=== PATIENT | female | born 2000 | race Caucasian/White ===

== ENCOUNTER 2019-08-22 12:28 | Outpatient (CLI) | payer BC, SELFPAY ==
--- NOTE | ~2019-08-22 | XR_ITS ---
XR hand RT min 3V DATE: 08/22/2019 12:59 INDICATION: Right fourth metacarpal pain after karate chop to a board TECHNIQUE: 3 views COMPARISON: 09/04/2018 right hand FINDINGS: No fracture or dislocation, periosteal reaction or bone destruction. Joint spaces are prese rved. No erosive change or chondrocalcinosis. IMPRESSION: Negative Reviewed, dictated and finalized at location A. IMPRESSION: Negative
== END 2019-08-22 12:29 | disposition home or self-care (01) ==
PROVIDERS: PCP Pediatrics; Visit Provider Pediatrics
DX: S69.91XA Unspecified injury of right wrist, hand and finger(s), initial encounter (principal); X58.XXXA Exposure to other specified factors, initial encounter
CPT/HCPCS: 73130

== ENCOUNTER 2021-12-04 20:33 | Emergency (ER) | payer BC, SELFPAY ==
[2021-12-04] VITALS (8 sets, daily range): BP systolic 103–136; BP diastolic 71–79; PULSE 115; RESP 20; TEMP 36.8; O2SAT 97–100
--- NOTE | ~2021-12-04 | US_ITS ---
EXAMINATION: US pelvic complete w TV DATE: 12/05/2021 03:43 INDICATION: Evaluate for ovarian torsion. Pelvic pain. Comparison:No prior studies for comparison. TECHNIQUE: Multiple transabdominal and endovaginal sonographic images of the pelvis performed. FINDINGS: The uterus measures 8.2 x 3.6 x 5 cm. The endometrial complex measures 2 mm. The right ovary measures 2.9 x 1.6 x 2.5 cm and the left ovary measures 5.9 x 4.6 x 4 cm. There are small follicles in each ovary. There is a complex hemorrhagic cyst of the left ovary measuring 5 x 4. 2 x 4.3 cm. Normal doppler signal in both ovaries. There is free fluid in the pelvis. There are no abnormal masses seen on either side. IMPRESSION: 1. Complex hemorrhagic cyst of the left ovary measuring up to 5 cm. 2: No evidence for ovarian torsion. Reviewed, dictated and finalized at location A.
--- NOTE | ~2021-12-04 | CT_ITS ---
EXAMINATION: CT abdomen pelvis w con DATE: 12/05/2021 01:52 INDICATION: Left lower quadrant pain. Intermittent nausea and vomiting. TECHNIQUE: Computed tomography (CT) of the abdomen and pelvis was performed without intravenous contr ast. The dose-length product was 328.12 mGy-cm. Automated exposure control and iterative reconstructi on technique were employed. COMPARISON: CT dated 08/22/2017 FINDINGS: Lung bases are unremarkable. Heart size normal. No significant pleural or pericardial effus ion. No significant vascular abnormality. No lymphadenopathy. Nonobstructive bowel gas pattern. Gallb ladder is present. There is a 5.2 x 4.3 cm left ovarian cyst. The liver, spleen, pancreas, adrenal glands and kidneys are unremarkable. Trace free fluid in the pel vis. There is grade 1 spondylolisthesis at L5-S1 secondary to spondylolysis. IMPRESSION: 1. Left ovarian cyst measuring 5.2 x 4.3 cm. Reviewed, dictated and finalized at location A.
[2021-12-04 20:59] LABS: Basophils Percent Auto 0.5 % (0.2-1.2); Eosinophils Absolute Auto 0.1 K/mm3 (0-0.3); Eosinophils Percent Auto 0.8 % (0-4.4); Hematocrit 39.8 % (37.0-47.0); Hemoglobin 13.7 g/dL (12.0-15.0); Immature Granulocyte Absolute 0.03 K/mm3 (0.00-0.031); Immature Granulocyte Percent A 0.4 % (0-0.5); Lymphocytes Absolute Auto 2.14 K/mm3 (0.9-3.2); Lymphocytes Percent Auto 27.3 % (18.3-44.2); Mean Corpuscular HGB Conc 34.4 g/dl (32-36); Mean Corpuscular Hemoglobin 29.9 pg (26-34); Mean Corpuscular Volume 86.9 fl (80-100); Mean Platelet Volume 9.1 fl (7.4-10.4); Monocytes Absolute Auto 0.6 K/mm3 (0.1-0.6); Neutrophils Absolute Auto 4.9 K/mm3 (1.3-6.7); Platelet Count Result 335 k/mm3 (150-375); Red Blood Count 4.58 M/mm3 (4.2-5.4); Red Cell Distribution Width 12.5 % (11.5-14.5); White Blood Count 7.8 K/mm3 (4.5-10.0)
[2021-12-04 21:09] LABS: Alanine Aminotransferase 25 U/L (6-35); Alkaline Phosphatase 61 U/L (38-126); Anion Gap 10 mmol/L (8-16); Aspartate Amino Transferase 25 U/L (14-36); Bilirubin,Total 0.6 mg/dL (0.2-1.3); Blood Urea Nitrogen 9 mg/dL (7-17); Calcium 9.2 mg/dL (8.4-10.2); Carbon Dioxide 26 mmol/L (22-30); Chloride 99 mmol/L (98-107); Estimated CRCL calculation 83 ml/min; Estimated Glomerular Filt Rate > 60; Glucose 98 mg/dL (65-110); Lipase 30 U/L (23-300); Potassium 4.1 mmol/L (3.4-5.0); Sodium 135 mmol/L (137-145)
[2021-12-04 21:31] LABS: Bacteria Urine Trace /hpf; RBC Urine 0-2 /hpf (0-2); Squamous Epithelial Cell Urine Few /hpf (Few); WBC Urine 0-3 /hpf
[2021-12-04 22:00] LABS: Add Urine Microscopic? YES; Color Urine Yellow (Yellow)
[2021-12-04 22:01] LABS: Appearance Urine Clear (Clear); Glucose Urine UA Trace mg/dL (Negative); Ketones Urine Negative (Negative); Protein Urine Negative (Negative); Specific Grav Ur 1.015 (1.001-1.035); pH Urine 7.5 (5.0-9.0)
[2021-12-04 22:02] LABS: Bilirubin Urine Negative (Negative); Blood Urine Negative (Negative); Leukocyte Esterase Ur Negative LEU/UL (Negative); Nitrate Urine Negative (Negative); Urobilinogen Urine 0.2 mg/dL (<2.0)
--- NOTE | 2021-12-04 23:38 | ED.ABDPAIN ---
HPI - Abdominal Pain General Chief Complaint: Abdominal Pain <Karen Jasmine PA-C - Last Filed: 12/05/21 17:14> Stated Complaint: ABDOMINAL PAIN <Karen Jasmine PA-C - Last Filed: 12/05/21 17:14> Time Seen by Provider: 12/04/21 23:23 <Karen Jasmine PA-C - Last Filed: 12/05/21 17:14> Source: patient <CADY Couch Last Filed: 12/05/21 17:14> Mode of arrival: ambulatory <CADY Couch Last Filed: 12/05/21 17:14> Limitations: no limitations <CADY Couch Last Filed: 12/05/21 17:14> History of Present Illness HPI narrative: This is a 21-year-old female that presents to the emergency department for left lower quadrant abdominal pain. Ongoing over the last week. Reports an episode of nausea and vomiting. Also reports some diarrhea. Does report she has had some discomfort with urination. Denies fevers or hematuria. <CADY Couch Last Filed: 12/05/21 17:14> Related Data Home Medications: Home Medications Medication Instructions Recorded Confirmed lisdexamfetamine 50 mg capsule mg 12/04/21 (Vyvanse) spironolactone 100 mg tablet 100 mg PO DAILY 12/04/21 <CADY Couch Last Filed: 12/05/21 17:14> Allergies/Adverse Reactions: Allergies Allergy/AdvReac Type Severity Reaction Status Date / Time No Known Allergies Allergy Verified 12/04/21 20:49 <Karen Jasmine PA-C - Last Filed: 12/05/21 17:14> Review of Systems Review of Systems: CONSTITUTIONAL: Denies fever GASTROINTESTINAL: Reports abdominal pain, nausea, vomiting, and diarrhea. GENITOURINARY: Reports dysuria. Denies hematuria. <CADY Couch Last Filed: 12/05/21 17:14> All systems reviewed & are unremarkable except as noted in HPI and below <CADY Couch Last Filed: 12/05/21 17:14> [facility] Past Medical History Medical History: Medical History (Updated 12/05/21 @ 03:25 by Karen Jasmine PA-C) History of ADHD <Karen Jasmine PA-C - Last Filed: 12/05/21 17:14> Social History Social History: Social History (Updated 12/04/21 @ 23:40 by Karen Jasmine PA-C) Smoking status: Never smoker <Karen Jasmine PA-C - Last Filed: 12/05/21 17:14> Exam Narrative: GENERAL: Well-appearing, well-nourished, and in no acute distress. HEAD: Normocephalic, atraumatic. EYES: EOMI. CHEST: Clear to auscultation. No respiratory distress. No wheezes rales or rhonchi HEART: Regular rate and rhythm. No murmur heard. Normal peripheral pulses. ABDOMEN: Soft, nondistended, normal active bowel sounds. Mild tenderness to palpation in the left lower quadrant, without guarding. No CVA tenderness EXTREMITIES: Normal range of motion. No edema. SKIN: Warm, dry, no rash. NEURO: No focal deficits. Alert and oriented x3. PSYCH: Normal mood and affect <Karen Jasmine PA-C - Last Filed: 12/05/21 17:14> Course CURTAIN STRETCHER/PA Physician Supervision I have personally seen and evaluated the patient and made [id number] time with the patient and agree with the advanced practice providers assessment evaluation plan <Mychal Peter MD - Last Filed: 12/05/21 04:54> Vital Signs Vital signs: Vital Signs Temperature 98.3 F 12/04/21 20:46 Pulse Rate 115 H 12/04/21 20:46 Respiratory Rate 20 12/04/21 20:46 Blood Pressure 136/79 12/04/21 20:46 Pulse Oximetry 97 12/04/21 20:46 Oxygen Delivery Room Air 12/04/21 20:46 Temperature 98.3 F 12/04/21 20:46 Pulse Rate 115 H 12/04/21 20:46 Respiratory Rate 20 12/04/21 20:46 Blood Pressure 114/74 12/05/21 01:17 Pulse Oximetry 100 12/05/21 01:17 Oxygen Delivery Room Air 12/04/21 20:46 <Karen Jasmine PA-C - Last Filed: 12/05/21 17:14> Vital Signs Temperature 98.3 F 12/04/21 20:46 Pulse Rate 115 H 12/04/21 20:46 Respiratory Rate 20 12/04/21 20:46 Blood Pressure 136/79 12/04/21 20:46 Pulse Oximetry 97 12/04/21 20:46
[2021-12-05] VITALS (12 sets, daily range): BP systolic 95–114; BP diastolic 48–77; O2SAT 99–100
[2021-12-05 00:40] LABS: Influenza A QL RT-PCR Negative (Negative); Influenza B QL RT-PCR Negative (Negative); SARS-CoV-2 RNA PCR Negative
[2021-12-05] MEDS: SODIUM CHLORIDE 0.9% IV 1,000 ML 999 ML IV CONT (00:58)
== END 2021-12-05 05:59 | disposition home or self-care (01) ==
PROVIDERS: Physician Assistant; Emergency Provider Emergency Medicine; PCP Physician Assistant
DX: N83.202 Unspecified ovarian cyst, left side (principal); Z20.822 Contact with and (suspected) exposure to COVID-19
CPT/HCPCS: 36415; 74177; 76830; 76856; 80053; 81001; 81025; 83690; 85025; 87502; 96361; 96365; 99284; J0131; J7030; Q9967; U0003; U0005

== ENCOUNTER 2022-01-21 10:30 | Outpatient (CLI) | payer BC, SELFPAY ==
--- NOTE | ~2022-01-21 | US_ITS ---
Pelvic ultrasound. Clinical History: Left ovarian cyst COMPARISON: 12/05/2021 Technique: Realtime transabdominal and transvaginal scanning of the pelvis was performed. Color flow Doppler and Doppler spectral analysis were performed. Findings: The uterus is anteverted. The endometrial stripe has a thickness of 3 mm. No focal mass is identified. The right ovary measures 2.0 x 1.9 x 1.5 cm. No significant right ovarian or adnexal mass is seen. The left ovary measures 2.5 x 2.8 x 2.4 cm. No significant left ovarian or adnexal mass is seen. Vascular flow present in both ovaries on Doppler spectral analysis. There is no evidence of free fluid in the cul de sac. Impression: No significant abnormality seen. Previously noted left ovarian hemorrhagic cyst is essentially comple tely resolved. Reviewed, dictated and finalized at location [] EXPELLER Impression: No significant abnormality seen. Previously noted left ovarian hemorrhagic cyst is essentially completely resolved.
== END 2022-01-21 10:31 | disposition home or self-care (01) ==
PROVIDERS: PCP Physician Assistant; Visit Provider Obstetrics & Gynecology
DX: N83.202 Unspecified ovarian cyst, left side (principal)
CPT/HCPCS: 76830; 76856

== ENCOUNTER 2022-05-25 11:05 | Emergency (ER) | payer BC, SELFPAY ==
--- NOTE | ~2022-05-25 | US_ITS ---
Pelvic ultrasound. Clinical History: Ovarian cyst Technique: Realtime transabdominal and transvaginal scanning of the pelvis was performed. Color flow Doppler and Doppler spectral analysis were performed. Findings: The uterus is anteverted. The endometrial stripe has a thickness of 2 mm. No focal mass is identified. The right ovary measures 4.3 x 3.9 x 4.7 cm. Hemorrhagic right ovarian cyst measures 4.2 cm in maximu m diameter. The left ovary measures 2.0 x 2.9 x 1.7 cm. No significant left ovarian or adnexal mass is seen. Vascular flow present in both ovaries on Doppler spectral analysis. There is no evidence of free fluid in the cul de sac. Impression: 4.2 cm hemorrhagic right ovarian cyst. Reviewed, dictated and finalized at [facility]. Impression: 4.2 cm hemorrhagic right ovarian cyst.
[2022-05-25 11:21] VITALS: BP 126/68; PULSE 98; RESP 18; TEMP 37.2; O2SAT 100
[2022-05-25 12:24] LABS: Basophils Percent Auto 0.9 % (0.2-1.2); Eosinophils Absolute Auto 0.1 K/mm3 (0-0.3); Hematocrit 37.7 % (37.0-47.0); Hemoglobin 12.4 g/dL (12.0-15.0); Immature Granulocyte Absolute 0.01 K/mm3 (0.00-0.031); Immature Granulocyte Percent A 0.2 % (0-0.5); Lymphocytes Absolute Auto 1.83 K/mm3 (0.9-3.2); Lymphocytes Percent Auto 41.7 % (18.3-44.2); Mean Corpuscular HGB Conc 32.9 g/dl (32-36); Mean Corpuscular Hemoglobin 28.8 pg (26-34); Mean Corpuscular Volume 87.7 fl (80-100); Mean Platelet Volume 9.4 fl (7.4-10.4); Monocytes Absolute Auto 0.4 K/mm3 (0.1-0.6); Monocytes Percent Auto 9.8 % (2.6-8.5); Neutrophils Percent Auto 44.4 % (45.5-73.1); Platelet Count Result 312 k/mm3 (150-375); Red Cell Distribution Width 13.2 % (11.5-14.5); White Blood Count 4.4 K/mm3 (4.5-10.0)
[2022-05-25 12:38] LABS: Alanine Aminotransferase 18 U/L (6-35); Albumin Level 4.1 g/dL (3.5-5.1); Alkaline Phosphatase 65 U/L (38-126); Anion Gap 5 mmol/L (8-16); Aspartate Amino Transferase 19 U/L (14-36); Bilirubin,Total 0.7 mg/dL (0.2-1.3); Blood Urea Nitrogen 7 mg/dL (7-17); Calcium 8.9 mg/dL (8.4-10.2); Carbon Dioxide 28 mmol/L (22-30); Chloride 105 mmol/L (98-107); Estimated CRCL calculation 126 ml/min; Estimated Glomerular Filt Rate > 60; Glucose 92 mg/dL (65-110); Lipase 27 U/L (23-300); Potassium 4.3 mmol/L (3.4-5.0); Sodium 138 mmol/L (137-145)
--- NOTE | 2022-05-25 12:39 | ED.GENADULT ---
HPI - General Adult General Chief complaint: Abdominal Pain Stated complaint: ovarian cyst Time Seen by Provider: 05/25/22 12:06 History of Present Illness HPI narrative: 22 yo female with pmh of ovarian cysts presents with R sided pelvic pressure that sometimes radiates to L side. This feels similar to prior ovarian cysts she has had in the past. lmp was 3 months ago which is normal for her. Related Data Home Medications Medication Instructions Recorded Confirmed lisdexamfetamine 50 mg capsule mg 12/04/21 (Vyvanse) spironolactone 100 mg tablet 100 mg PO DAILY 12/04/21 Allergies Allergy/AdvReac Type Severity Reaction Status Date / Time No Known Allergies Allergy Verified 05/25/22 13:13 Review of Systems Review of Systems: Gen.: Denies fevers or chills Eyes: Denies eye pain or visual change ENT: Denies congestion Respiratory: Denies shortness of breath or cough CV: Denies chest pain or palpitations GI: Denies abdominal pain nausea, emesis or diarrhea denies burning, urgency, frequency or hematuria Musculoskeletal: Denies back pain or muscle pain Neuro: Denies numbness, tingling, weakness or focal weakness Skin: Denies rash Except as documented, all other systems reviewed and negative PMFSH Past Medical History Medical History History of ADHD Social History Social History Smoking status: Never smoker Exam Narrative: GENERAL: Well-appearing, well-nourished, and in no acute distress. HEAD: Normocephalic, atraumatic. EYES: PERRLA and EOMI. ENT: Nares clear, no rhinorrhea or epistaxis. Mucous membranes moist. NECK: Supple. CHEST: Clear to auscultation. No respiratory distress. HEART: Regular rate and rhythm. No murmur heard. Normal peripheral pulses. ABDOMEN: Soft, nontender, nondistended, normal active bowel sounds. EXTREMITIES: Normal range of motion. No edema. SKIN: Warm, dry, no rash. NEURO: No focal deficits. Alert and oriented x3. PSYCH: Normal mood and affect. Course Vital Signs Vital signs: Vital Signs Temperature 99.0 F 05/25/22 11:21 Pulse Rate 98 05/25/22 11:21 Respiratory Rate 18 05/25/22 11:21 Blood Pressure 126/68 05/25/22 11:21 Pulse Oximetry 100 05/25/22 11:21 Oxygen Delivery Room Air 05/25/22 11:21 Temperature 99.0 F 05/25/22 11:21 Pulse Rate 89 05/25/22 14:08 Respiratory Rate 17 05/25/22 14:08 Blood Pressure 120/72 05/25/22 14:08 Pulse Oximetry 98 05/25/22 14:08 Oxygen Delivery Room Air 05/25/22 11:21 Medical Decision Making MDM Narrative Medical decision making narrative: 22 yo w pelvic pressure. hcg negative labs-reassuring pelvic us-4.2 cm hemorrhagic R ovarian cyst nsaids at DC and return precautions given Vital Signs Vital Signs: Vital Signs Temperature 99.0 F 05/25/22 11:21 Pulse Rate 98 05/25/22 11:21 Respiratory Rate 18 05/25/22 11:21 Blood Pressure 126/68 05/25/22 11:21 Pulse Oximetry 100 05/25/22 11:21 Oxygen Delivery Room Air 05/25/22 11:21 Temperature 99.0 F 05/25/22 11:21 Pulse Rate 89 05/25/22 14:08 Respiratory Rate 17 05/25/22 14:08 Blood Pressure 120/72 05/25/22 14:08 Pulse Oximetry 98 05/25/22 14:08 Oxygen Delivery Room Air 05/25/22 11:21 Lab Data 05/25/22 12:18 05/25/22 12:18 Labs: Lab Results 05/25/22 05/25/22 05/25/22 Range/Units 12:18 12:18 12:32 WBC 4.4 L (4.5-10.0) K/mm3 RBC 4.30 (4.2-5.4) M/mm3 Hgb 12.4 (12.0-15.0) g/dL Hct 37.7 (37.0-47.0) % MCV 87.7 (80-100) fl MCH 28.8 (26-34) pg MCHC 32.9 (32-36) g/dl RDW 13.2 (11.5-14.5) % Plt Count 312 (150-375) k/mm3 MPV 9.4 (7.4-10.4) fl Immature Gran % (Auto) 0.2 (0-0.5) % Neut % (Auto) 44.4 L (45.5-73.1) % Lymph % (Auto) 41.7 (18.3-44.2) % [place] % (Auto) 9.8 H (2.6
[2022-05-25 12:45] LABS: Appearance Urine Clear (Clear); Bilirubin Urine Negative (Negative); Blood Urine Negative (Negative); Color Urine Yellow (Yellow); Glucose Urine UA Negative (Negative); Ketones Urine Negative (Negative); Leukocyte Esterase Ur Negative LEU/UL (Negative); Nitrate Urine Negative (Negative); Protein Urine Negative (Negative); Specific Grav Ur 1.019 (1.001-1.035)
[2022-05-25 13:03] LABS: Add Urine Microscopic? NO
[2022-05-25] MEDS: KETOROLAC 15 MG/ML VIAL (*BKC) IV PUSH (13:14)
[2022-05-25 14:08] VITALS: BP 120/72; PULSE 89; RESP 17; O2SAT 98
== END 2022-05-25 14:09 | disposition home or self-care (01) ==
PROVIDERS: Emergency Provider Emergency Medicine; PCP Physician Assistant
DX: N83.201 Unspecified ovarian cyst, right side (principal); F90.9 Attention-deficit hyperactivity disorder, unspecified type
CPT/HCPCS: 36415; 76830; 76856; 80053; 81003; 81025; 83690; 85025; 96374; 99284; J1885

== ENCOUNTER 2023-02-26 15:12 | Emergency (ER) | payer BC, SELFPAY ==
--- NOTE | 2023-02-26 15:28 | ED.GENADULT ---
HPI - General Adult General Chief complaint: Skin/Abscess/Foreign Body Stated complaint: rash Time Seen by Provider: 02/26/23 15:55 Source: patient, RN notes reviewed and old records reviewed Mode of arrival: ambulatory Limitations: no limitations History of Present Illness HPI narrative: 23-year-old female presents to the [facility] with complaints of a rash. Patient states that started just above her left anterior knee. Has spread to her chest, stomach and back. Describes it as being very itchy. No treatment prior to arrival. Denies any new creams ointments lotions detergents. Denies any new clothes Related Data Home Medications Medication Instructions Recorded Confirmed lisdexamfetamine 50 mg capsule mg 12/04/21 (Vyvanse) etonogestrel 68 mg subdermal 1 implant subdermal ONCE 02/26/23 02/26/23 implant (Nexplanon) Allergies Allergy/AdvReac Type Severity Reaction Status Date / Time No Known Allergies Allergy Verified 02/26/23 15:59 Review of Systems Review of Systems: All systems reviewed & are unremarkable except as noted in HPI and below Constitutional: Constitutional: Reports no additional constitutional complaints Eyes: Eyes: Reports no additional eye complaints ENT: Reports system reviewed and no additional complaints, except as documented Cardiovascular: Cardiovascular: Reports no additional cardiovascular complaints, Denies chest pain and Denies dyspnea Respiratory: Respiratory: Reports no additional respiratory complaints, Denies chest congestion, Denies cough and Denies dyspnea Gastrointestinal: Gastrointestinal: Reports no additional gastrointestinal complaints, Denies abdominal pain, Denies nausea and Denies vomiting Musculoskeletal: Musculoskeletal: Reports no additional musculoskeletal complaints Integumentary/Breasts: Skin/Breast: Reports as per HPI and Reports rash Neurologic: Reports system reviewed and no additional complaints, except as documented Psychiatric: Psychiatric: Reports no additional psychiatric complaints Allergic/Immunologic: Allergic/Immunologic: Reports no additional allergic/immunologic complaints [facility] Past Medical History Medical History History of ADHD Social History Social History Smoking status: Never smoker Comments At the time of my signature, I reviewed and agree with the nursing past medical, surgical, social, and family history. There is no relevant family history pertinent to the patient complaint. Exam Const: General: cooperative, healthy appearing, comfortable, no acute distress, well developed, alert and well nourished Nutritional Appearance: well nourished Orientation/consciousness: patient oriented x3 Limitations: no limitations HENMT: Head: normal to inspection Ears: hearing grossly normal bilaterally and external ears normal Face/Nose/Sinus: Normal external nose present, Normal nares present, Normal nasal mucous membranes and turbinates present, normal facial exam and face symmetric Face and sinus: normal facial exam and face symmetric Mouth: Yes Normal oral and palatal mucosa present, Yes lip normal and Yes moist mucous membranes Eyes: General: appearance normal, both eyes and all related structures Alignment and Position: alignment normal Periorbital: periorbital findings normal Pupils: Equal, round and reactive pupils present EOM: EOMs intact bilaterally Neck: Neck: normal visual inspection, full ROM, no lymphadenopathy and no meningeal signs Chest: Chest palpation & inspection: normal inspection of the chest Resp: Effort & Inspection: normal respiratory effort and able to speak in complete sentences Auscultation: clear to auscultation bilaterally, no crackles, no rales, no rhonchi and no wheezes Cardio: Rate: regular rate Rhythm: regular rhythm Back/Spine/Pelvis: Cervical Spine: cervical ROM normal Skin
[2023-02-26 15:39] VITALS: BP 123/73; PULSE 103; RESP 18; TEMP 36.9; O2SAT 100
== END 2023-02-26 16:10 | disposition home or self-care (01) ==
PROVIDERS: Emergency Provider Nurse Practitioner; PCP Physician Assistant
DX: R21 Rash and other nonspecific skin eruption (principal)
CPT/HCPCS: 99213; G0463

== ENCOUNTER 2023-02-26 17:51 | Emergency (ER) | payer BC, SELFPAY ==
[2023-02-26 17:53] VITALS: BP 120/79; PULSE 94; RESP 17; TEMP 36.6; O2SAT 100
--- NOTE | 2023-02-26 23:59 | PC.NURSE ---
Patient comes to desk to state I'm going to head out, I will come back if I need to. Patient informed of the risks of leaving before being seen by a provider and benefits of staying. Patient a/ox 4, verbalized understanding. Patient ambulated out of the ED with a steady gait with belongings in hand.
== END 2023-02-27 00:29 | disposition left against medical advice (07) ==
LOC: ANHED 02-27 00:09
PROVIDERS: PCP Physician Assistant
DX: R21 Rash and other nonspecific skin eruption (principal)
CPT/HCPCS: 99199

== ENCOUNTER 2023-05-30 00:10 | Emergency (ER) | payer BC, SELFPAY ==
--- NOTE | ~2023-05-30 | US_ITS ---
EXAMINATION: US pelvic complete w TV DATE: 05/30/2023 02:05 INDICATION: Left lower quadrant abdominal pain. TECHNIQUE: Multiple transabdominal and transvaginal sonographic images of the pelvis were obtained. COMPARISON: CT abdomen and pelvis 05/30/23 FINDINGS: TRANSABDOMINAL ULTRASOUND: The uterus measures 7.7 x 3.5 x 4.5 cm. There is no free fluid in the pelvis. TRANSVAGINAL ULTRASOUND: The endometrial complex measures 3 mm in thickness. The right ovary measures 2.0 x 3.7 x 2.5 cm. The left ovary measures 2.8 x 3.4 x 1.9 cm. There is normal vascular flow in the ovaries. IMPRESSION: 1. Normal pelvis. Reviewed, dictated and finalized at location E. IMPRESSION: 1. Normal pelvis.
--- NOTE | ~2023-05-30 | CT_ITS ---
EXAMINATION: CT abdomen pelvis wo con DATE: 05/30/2023 01:27 INDICATION: Left lower quadrant abdominal pain. Nausea and vomiting. TECHNIQUE: Computed tomography (CT) of the abdomen and pelvis was performed without intravenous contr ast. Automated exposure control and iterative reconstruction technique were employed. The dose-length product was 231.93 mGy-cm. COMPARISON: CT abdomen and pelvis 12/05/2021 FINDINGS: The visualized portions of the lung bases are clear without pneumonia or pleural effusion. The heart size is normal. No pericardial effusion. The liver, gallbladder, spleen, pancreas, adrenal glands, and kidneys are normal. There is no urolithiasis. The appendix is normal. There are no pathol ogically enlarged lymph nodes. There is no free intraperitoneal fluid. There are chronic bilateral L5 pars defects. IMPRESSION: 1. No etiology for the patient's symptoms. Reviewed, dictated and finalized at location E.
[2023-05-30 00:10] VITALS: BP 119/86; PULSE 96; RESP 18; TEMP 37.1; O2SAT 100
--- NOTE | 2023-05-30 01:01 | PC.NURSE ---
x-ray notified to call in ultrasound
[2023-05-30 01:06] LABS: Basophils Percent Auto 0.5 % (0.2-1.2); Eosinophils Absolute Auto 0.1 K/mm3 (0-0.3); Eosinophils Percent Auto 1.6 % (0-4.4); Hematocrit 40.1 % (37.0-47.0); Hemoglobin 13.3 g/dL (12.0-15.0); Immature Granulocyte Absolute 0.01 K/mm3 (0.00-0.031); Immature Granulocyte Percent A 0.2 % (0-0.5); Lymphocytes Absolute Auto 1.89 K/mm3 (0.9-3.2); Lymphocytes Percent Auto 32.8 % (18.3-44.2); Mean Corpuscular HGB Conc 33.2 g/dl (32-36); Mean Corpuscular Volume 87.4 fl (80-100); Mean Platelet Volume 9.6 fl (7.4-10.4); Monocytes Absolute Auto 0.4 K/mm3 (0.1-0.6); Monocytes Percent Auto 6.8 % (2.6-8.5); Neutrophils Absolute Auto 3.4 K/mm3 (1.3-6.7); Neutrophils Percent Auto 58.1 % (45.5-73.1); Platelet Count Result 271 k/mm3 (150-375); Red Blood Count 4.59 M/mm3 (4.2-5.4); Red Cell Distribution Width 12.8 % (11.5-14.5); White Blood Count 5.8 K/mm3 (4.5-10.0)
[2023-05-30 01:10] LABS: Appearance Urine Clear (Clear); Bacteria Urine Rare /hpf; Bilirubin Urine Negative (Negative); Blood Urine 3+ (Negative); Color Urine Yellow (Yellow); Glucose Urine UA Negative (Negative); Ketones Urine Negative (Negative); Leukocyte Esterase Ur Negative LEU/UL (Negative); Nitrate Urine Negative (Negative); Non Pathogenic Casts 0-2; Protein Urine Negative (Negative); Specific Grav Ur 1.026 (1.001-1.035); Squamous Epithelial Cell Urine Occasional /hpf (Few); Urobilinogen Urine 0.2 mg/dL (<2.0); WBC Urine 0-5 /hpf (0-3); pH Urine 5.5 (5.0-9.0)
[2023-05-30 01:16] LABS: Alanine Aminotransferase 35 U/L (6-35); Albumin Level 4.7 g/dL (3.5-5.1); Alkaline Phosphatase 80 U/L (38-126); Anion Gap 7 mmol/L (4-12); Aspartate Amino Transferase 36 U/L (14-36); Bilirubin,Total 0.7 mg/dL (0.2-1.3); Blood Urea Nitrogen 8 mg/dL (7-17); Calcium 9.6 mg/dL (8.4-10.2); Carbon Dioxide 24 mmol/L (22-30); Chloride 106 mmol/L (98-107); Estimated CRCL calculation 102 ml/min; Estimated Glomerular Filt Rate > 60; Glucose 91 mg/dL (65-110); Lipase 48 U/L (23-300); Potassium 3.5 mmol/L (3.4-5.0); Sodium 137 mmol/L (137-145)
[2023-05-30 01:17] LABS: Add Urine Microscopic? YES
--- NOTE | 2023-05-30 01:31 | ED.GENADULT ---
HPI - General Adult General Chief complaint: Abdominal Pain Stated complaint: ovarian cyst rupture , abd pain, N/V Time Seen by Provider: 05/30/23 00:53 History of Present Illness HPI narrative: Patient is a 23-year-old female who presents emergency department with chief complaint of abdominal pain. Patient reports that she has left lower quadrant abdominal pain that radiates to her back patient reports she has prior history of ovarian cyst states it feels similar to whenever she had 1 rupture past patient states the pain is little bit worse than normal the patient denies any diarrhea but does report that she has had some nausea and felt as though she was going to vomit. The patient reports that she was at work and her pain got worse and she decided to come downstairs to the emergency department to be evaluated Related Data Home Medications Medication Instructions Recorded Confirmed lisdexamfetamine 50 mg capsule mg 12/04/21 (Vyvanse) etonogestrel 68 mg subdermal 1 implant subdermal ONCE 02/26/23 02/26/23 implant (Nexplanon) Allergies Allergy/AdvReac Type Severity Reaction Status Date / Time No Known Allergies Allergy Verified 02/26/23 15:59 Review of Systems Review of Systems: A 10 system review of systems was completed on the patient and is negative except for what is stated in the HPI. Nursing and ancillary documentation was reviewed. PMFSH Past Medical History Medical History History of ADHD Social History Social History Smoking status: Never smoker Exam Narrative: GENERAL: Well-appearing, well-nourished, and in no acute distress. HEAD: Normocephalic, atraumatic. EYES: PERRLA and EOMI. ENT: Nares clear, no rhinorrhea or epistaxis. Mucous membranes moist. NECK: Supple. CHEST: Clear to auscultation. No respiratory distress. HEART: Regular rate and rhythm. No murmur heard. Normal peripheral pulses. ABDOMEN: Soft, tenderness to palpation left lower quadrant, nondistended, normal active bowel sounds. EXTREMITIES: Normal range of motion. No edema. SKIN: Warm, dry, no rash. NEURO: No focal deficits. Alert and oriented x3. PSYCH: Normal mood and affect. Course Vital Signs Vital signs: Vital Signs Temperature 37.1 C 05/30/23 00:10 Pulse Rate 96 05/30/23 00:10 Respiratory Rate 18 05/30/23 00:10 Blood Pressure 119/86 05/30/23 00:10 Pulse Oximetry 100 05/30/23 00:10 Oxygen Delivery Room Air 05/30/23 00:10 Temperature 37.1 C 05/30/23 00:10 Pulse Rate 96 05/30/23 00:10 Respiratory Rate 18 05/30/23 00:10 Blood Pressure 119/86 05/30/23 00:10 Pulse Oximetry 100 05/30/23 00:10 Oxygen Delivery Room Air 05/30/23 00:10 Medical Decision Making MDM Narrative Medical decision making narrative: Differential diagnosis includes renal stone, diverticulitis, colitis, ovarian cyst, ovarian torsion Laboratory studies were obtained showed normal CBC normal CMP urinalysis showed no evidence UTI. CT scan of the abdomen pelvis showed no evidence of stone or no acute abnormalities. Ultrasound of the pelvis showed no evidence of large ovarian cyst and no evidence of torsion. Vital Signs Vital Signs: Vital Signs Temperature 37.1 C 05/30/23 00:10 Pulse Rate 96 05/30/23 00:10 Respiratory Rate 18 05/30/23 00:10 Blood Pressure 119/86 05/30/23 00:10 Pulse Oximetry 100 05/30/23 00:10 Oxygen Delivery Room Air 05/30/23 00:10 Temperature 37.1 C 05/30/23 00:10 Pulse Rate 96 05/30/23 00:10 Respiratory Rate 18 05/30/23 00:10 Blood Pressure 119/86 05/30/23 00:10 Pulse Oximetry 100 05/30/23 00:10 Oxygen Delivery Room Air 05/30/23 00:10 Lab Data 05/30/23 00:56 05/30/23 00:56 Labs: Lab Results 05/30/23 Range/Units 00:56 WBC 5.8 (4.5-10.0) K/mm3
[2023-05-30 02:30] VITALS: BP 122/74; PULSE 82; RESP 14; O2SAT 100
== END 2023-05-30 02:34 | disposition home or self-care (01) ==
PROVIDERS: Emergency Provider Emergency Medicine; PCP Physician Assistant
DX: R10.32 Left lower quadrant pain (principal); F90.9 Attention-deficit hyperactivity disorder, unspecified type
CPT/HCPCS: 36415; 74176; 76830; 76856; 80053; 81001; 81025; 83690; 85025; 99284

== ENCOUNTER 2023-12-24 16:28 | Emergency (ER) | payer BC, SELFPAY ==
--- NOTE | 2023-12-24 16:34 | ED_ITS ---
HPI - General Adult General Chief complaint: Upper Respiratory Infection Stated complaint: chest burn Time Seen by Provider: 12/24/23 16:34 Source: patient Mode of arrival: ambulatory Limitations: no limitations History of Present Illness HPI narrative: 23-year-old female patient presents to the [facility] with complaints of sore throat and burning chest pain that started today. Patient states she said a cough and sore throat for the past 4 5 days. Denies any fevers. Denies any ear pain. Denies any abdominal pain, nausea, vomiting or diarrhea. Patient denies taking any medication for her symptoms. Related Data Home Medications Medication Instructions Recorded Confirmed lisdexamfetamine 50 mg capsule 50 mg PO DAILY 12/04/21 12/24/23 (Vyvanse) etonogestrel 68 mg subdermal 1 implant subdermal ONCE 02/26/23 12/24/23 implant (Nexplanon) Allergies Allergy/AdvReac Type Severity Reaction Status Date / Time No Known Allergies Allergy Verified 12/24/23 16:32 Review of Systems Review of Systems: CONSTITUTIONAL: Denies fever, chills, or sweats. EYES: Denies visual changes, redness, or discharge. ENT: Positive rhinorrhea, congestion, sore throat, denies otalgia. CARDIOVASCULAR: positive chest burning, denies palpitations, or edema. RESPIRATORY: positive cough , intermittent dyspnea. GASTROINTESTINAL: Denies abdominal pain, nausea, vomiting, or diarrhea. GENITOURINARY: Denies dysuria or hematuria. SKIN: Denies rash or itching. MUSCULOSKELETAL: Denies back pain, joint pain, or myalgia. NEUROLOGIC: Denies headache, numbness, or weakness. PSYCHIATRIC: Denies anxiety or depression. PMFSH Past Medical History Medical History History of ADHD Social History Social History Smoking status: Never smoker Comments At the time of my signature I agree with nursing past medical history, surgical, social, and family history. There is no relevant family history pertinent to the presenting complaint. Exam Narrative: GENERAL: Well-appearing, well-nourished, and in no acute distress. HEAD: Normocephalic, atraumatic. EYES: PERRLA and EOMI. ENT: Nares with erythema edema noted bilaterally, no rhinorrhea or epistaxis. Mucous membranes moist. posterior pharynx with erythema and 1+ tonsillar enlargement, no exudates or lesions present. Bilateral TMs are clear no erythema foreign bodies canal. NECK: Supple. No lymphadenopathy CHEST: Clear to auscultation. No respiratory distress. HEART: Regular rate and rhythm. No murmur heard. Normal peripheral pulses. ABDOMEN: Soft, nontender, nondistended, normal active bowel sounds. EXTREMITIES: Normal range of motion. No edema. SKIN: Warm, dry, no rash. NEURO: No focal deficits. Alert and oriented x3. Course Course Level of Care: Express Care Visit Vital Signs Vital signs: Vital Signs Temperature 36.4 C 12/24/23 16:37 Pulse Rate 88 12/24/23 16:37 Respiratory Rate 17 12/24/23 16:37 Blood Pressure 114/73 12/24/23 16:37 Pulse Oximetry 100 12/24/23 16:37 Oxygen Delivery Room Air 12/24/23 16:37 Temperature 36.4 C 12/24/23 16:37 Pulse Rate 88 12/24/23 16:37 Respiratory Rate 17 12/24/23 16:37 Blood Pressure 114/73 12/24/23 16:37 Pulse Oximetry 100 12/24/23 16:37 Oxygen Delivery Room Air 12/24/23 16:37 Vital signs reviewed. Medical Decision Making MDM Narrative Medical decision making narrative: Notify patient that she is negative today for strep. We will discharge her home she continue taking gdsj-vzy-[id number] allergy medicines including a 24 hour antihistamine and Flonase to help with symptoms. Patient may use [id number] cough medication to help symptoms. Discussed with her this is a virus and her last anywhere from 5-10 days. Differential Diagnosis Differential Diagnosis: Differential diagnosis: Allergic rhinitis, chronic sinusitis, tonsillitis, acute sinusitis, infectious mononucleosis, seasonal influenza, pertussis, diphtheria, meningococcal disease, viral syndrome, viral bronchitis, RSV, COVID- 19 Vital Signs Vital Signs: Vital Signs Temperature 36.4 C 12/24/23 16:37 Pulse Rate 88 12/24/23 16:37 Respiratory Rate 17 12/24/23 16:37 Blood Pressure 114/73 12/24/23 16:37 Pulse Oximetry 100 12/24/23 16:37 Oxygen Delivery Room Air 12/24/23 16:37 Temperature 36.4 C 12/24/23 16:37 Pulse Rate 88 12/24/23 16:37 Respiratory Rate 17 12/24/23 16:37 Blood Pressure 114/73 12/24/23 16:37 Pulse Oximetry 100 12/24/23 16:37 Oxygen Delivery Room Air 12/24/23 16:37 Critical Care Time Critical Care Time Critical Care Time: No Discharge Plan Discharge Clinical Impression: Viral infection, Pharyngitis Patient Disposition: Home, Self-Care Condition: Stable Instructions: Antibiotic Form, Viral Syndrome (ED) Additional Instructions: Viral illness may last between 7-12days; antibiotic is NOT recommended at this time. Recommend antihistamine such as Benadryl at night time and Claritin/Zyrtec/Phyllis during the day Cough syrup may cause drowsiness; avoid driving or take it at night time. Also, recommend symptomatic treatment includes: rest, fluids, and increase humidity of the air at home. Recommend Acetaminophen or nonsteroidal anti-inflammatory agents (NSAIDs) as directed in the bottle to reduce fever and/pain/headache. Avoid smoking/second-hand smoke. Limit visits to areas with large crowds. Please schedule a follow-up visit with your personal physician for further evaluation and treatment within 3-5days. Including recheck and discussion of you r blood pressure. If your symptoms persist, change or worsen significantly before you can contact your personal physician then please, without delay, go to the emergency department for further evaluation. Prescriptions: No Action Nexplanon 68 mg Implant 1 implant SUBDERMAL ONCE Rx Instructions: as a single dose lisdexamfetamine [Vyvanse] 50 mg capsule 50 mg PO DAILY Follow-up/Referrals: Kristi,SYDNIE Tejada [Primary Care Provider] - Time of Disposition: 16:54
[2023-12-24 16:37] VITALS: BP 114/73; PULSE 88; RESP 17; TEMP 36.4; O2SAT 100
[2023-12-26 10:04] LABS: EDSTREPNEGPOS1 Negative (Negative)
== END 2023-12-24 16:55 | disposition home or self-care (01) ==
PROVIDERS: Emergency Provider Nurse Practitioner Family; PCP Physician Assistant
DX: B34.9 Viral infection, unspecified (principal); J02.9 Acute pharyngitis, unspecified; F90.9 Attention-deficit hyperactivity disorder, unspecified type
CPT/HCPCS: 87081; 87880; 99213; G0463

== ENCOUNTER 2024-09-05 07:46 | Outpatient (CLI) | payer BC, SELFPAY ==
--- OUTSIDE RECORDS SUMMARY | 2024-09-05 07:54 | XMS_ITS | Clinical Summary ---
Author Organization [facility] Address [address] [place] [address] Care Team Providers Care Expressive Art Therapist Name Role Phone Mallory Berry Primary Care Provider [phone] Allergies No known active allergies Medications etonogestreL (NEXPLANON) 68 mg implant Nexplanon 68 mg subdermal implant Inject 1 implant by subcutaneous route. Active lisdexamfetamine (VYVANSE) 50 mg capsuleIndication s:Attention deficit disorder (ADD) without hyperactivity Take 1 capsule (50 mg total) by mouth every morning 30 capsule 08/24/19 25 Active lisdexamfetamine (VYVANSE) 50 mg capsuleIndication s:Attention deficit disorder (ADD) without hyperactivity Take 1 capsule (50 mg total) by mouth every morning 30 capsule 07/23/19 25 025 Discontin ued(Reord er) Active Problems Problem Noted Date Diagnosed Date Fatigue 06/06/2024 Assessment & Plan (06/06/2024 8:10 PM CDT): Probably multifactorial. Check labs and followup to re-evaluate Diabetes mellitus screening 06/06/2024 Assessment & Plan (06/06/2024 8:10 PM CDT): Check labs Screening examination for ST D (sexually transmitted disease) 06/06/2024 Assessment & Plan (06/06/2024 8:10 PM CDT): STD screening ordered per patient request. No known exposure Annual physical exam 06/06/2024 Assessment & Plan (06/06/2024 8:10 PM CDT): Encouraged healthy lifestyle, good nutrition and exercise. Encouraged Calcium and Vitamin D and weight bearing exercise for bone health. Reviewed immunizations Reviewed age appropirate screenings. BMI 28.0-28.9,adult 01/09/2024 Assessment & Plan (06/06/2024 2:37 PM CDT): Weight/BMI is in healthy range. Continue healthy lifestyle to maintain. Assessment & Plan (01/09/2024 11:05 AM GYPSUM CALCINER): BMI Follow-up includes: Discussed diet and exercising counseling. Sore throat 01/09/2024 Assessment & Plan (01/09/2024 1:36 PM GYPSUM CALCINER): Patient states she has had persistent sore throat. Strong history of strep throat confirmed by test when she was in high school. States she would get 3-4 episodes a year but never met the threshold of 5 to have her tonsils out. Over the last few months she has noticed more tonsil stones. She has been gargling salt water using a water pick she will have to just pluck them out and it continues to cause discomfort. She would like to see ENT to discuss options. I did repeat a strep today and it was negative. Had a negative a few weeks ago in the urgent care. I let patient know that tonsil stones generally are treated conservatively but will make the referral to ENT for further evaluation and their recommendation. Nexplanon in place 05/23/2023 Assessment & Plan (01/09/2024 1:36 PM GYPSUM CALCINER): Nexplanon in place. Happy with control regimen Assessment & Plan (10/02/2023 8:59 PM CDT): Nexplanon in place for control Assessment & Plan (05/23/2023 12:28 AM CDT): Next month in place. Using for control. History of COVID-19 02/15/2021 Overview (02/15/2021): 02/2021 Elevated liver enzymes 01/26/2021 Assessment & Plan (01/26/2021 11:28 PM GYPSUM CALCINER): Recheck labs Attention deficit disorder (ADD) without hyperac tivity 10/07/2019 Assessment & Plan (06/06/2024 8:11 PM CDT): Adult ADD is well controlled with Vyvanse 50. Refills will be available. Follow up in the office in about 4 months to reassess or sooner for any other problems or concerns Assessment & Plan (01/09/2024 1:36 PM GYPSUM CALCINER): Symptoms are stable with the Vyvanse 50. Happy with the dose. Refills will be available until her next visit. Assessment & Plan (10/02/2023 8:59 PM CDT): Continue with Vyvanse 50 mg Assessment & Plan (05/23/2023 12:28 AM CDT): Patient is doing well the Vyvanse 50. Continue same dose Assessment & Plan (12/04/2022 11:05 PM CDT): Symptoms are stable with Vyvanse 50. Continue current regimen. Follow-up in 4 months to reassess or sooner for any other problems or concerns Assessment & Plan (05/05/2022 8:35 AM CDT): Stable with Vyvanse 50. Happy with the results. Would like to continue with same dose. Assessment & Plan (01/10/2022 12:11 AM GYPSUM CALCINER): Tolerating the Vyvanse 50 well with good control of her ADD symptoms. Will continue. Refills for the next 4 months and then needs follow-up for wellness exam. Assessment & Plan (08/31/2021 10:22 AM CDT): Patient doing well with Vyvanse 50 mg. She plans to continue it through the summertime into her new job. Appetite is good, sleeping well. Assessment & Plan (04/27/2021 11:31 AM CDT): ADD symptoms are well controlled with the Vyvanse 50 mg. She is doing well in her classes and look for and wrapping up the semester. Assessment & Plan (01/26/2021 11:23 PM GYPSUM CALCINER): Stable with the Vyvanse 50 mg. Refills sent to pharmacy. Assessment & Plan (02/24/2020 8:32 PM GYPSUM CALCINER): Continue Vyvanse. Still encouraged counseling on campus. Pt still declines. Just filled Vyvanse 02/03 so may call for refills when time. Assessment & Plan (10/07/2019 10:25 AM CDT): Per pt history she has been on Vyvanse. Would like to obtain records. Eczema 08/21/2019 Lumbago 06/15/2012 Osteoarthritis of lumbar spine 06/15/2012 Resolved Problems Problem Noted Date Diagnosed Date Resolved Date Annual physical exam 05/23/2023 024 Assessment & Plan (10/02/2023 8:59 PM CDT): Encouraged healthy lifestyle, good nutrition and exercise. Encouraged Calcium and Vitamin D and weight bearing exercise for bone health. Reviewed immunizations Reviewed age appropirate screenings. Assessment & Plan (05/23/2023 12:29 AM CDT): Encouraged healthy lifestyle, good nutrition and exercise. Encouraged Calcium and Vitamin D and weight bearing exercise for bone health. Reviewed immunizations Reviewed age appropirate screenings. BMI 30.0-30.9,adult 05/23/2023 09/22/19 24 Assessment & Plan (05/23/2023 12:29 AM CDT): Discussed the patient's BMI. The BMI is above average. BMI management plan is completed. BMI Follow-up includes: nutrition counseling, exercise counseling and education provided. Obesity (BMI 30-39.9) 05/11/20232023 Assessment & Plan (05/23/2023 12:29 AM CDT): Discussed the patient's BMI. The BMI is above average. BMI management plan is completed. BMI Follow-up includes: nutrition counseling, exercise counseling and education provided. BMI 24.0-24.9, adult 11/25/2022 024 Assessment & Plan (11/25/2022 10:44 AM CDT): Weight/BMI is in healthy range. Continue healthy lifestyle to maintain. BMI 24.0-24.9, adult 05/05/2022 023 Assessment & Plan (05/05/2022 8:12 AM CDT): Weight/BMI is in healthy range. Continue healthy lifestyle to maintain. Annual physical exam 05/05/2022 023 Assessment & Plan (05/05/2022 8:35 AM CDT): Encouraged healthy lifestyle, good nutrition and exercise. Encouraged Calcium and Vitamin D and weight bearing exercise for bone health. Reviewed immunizations Reviewed age appropirate screenings. BMI 23.0-23.9, adult 01/06/2022 023 Assessment & Plan (01/06/2022 7:59 AM GYPSUM CALCINER): Weight/BMI is in healthy range. Continue healthy lifestyle to maintain. BMI 24.0-24.9, adult 08/31/2021 022 Assessment & Plan (08/31/2021 10:22 AM CDT): Weight/BMI is in healthy range. Continue healthy lifestyle to maintain. BMI 29.0-29.9,adult 04/27/2021 01/09/20 24 Assessment & Plan (10/02/2023 9:00 PM CDT): Weight/BMI is in healthy range. Continue healthy lifestyle to maintain. Assessment & Plan (04/27/2021 10:58 AM CDT): Weight/BMI is in healthy range. Continue healthy lifestyle to maintain. Cough 02/13/2021 05/23/2023 Assessment & Plan (02/13/2021 8:51 PM GYPSUM CALCINER): Patient to presume positive COVID/FLU until results are available and plan to self isolate for up to 10 days from the onset of sxs. Check COVID/FLU test thru [facility] collection site in [place]. If positive COVID, complete 10 day quarantine and consider monoclonal antibodies based on risk factors. If positive FLU, complete 5 day quarantine and be fever free for 24 hours without meds and may consider antiviral based on timing and risk factors. If negative, treat sxs and observe. Treat sxs with Tylenol, Cough/cold medication otc and add VitD 5,000IU daily and Zinc 50mg daily. Monitor sxs and call or go to the ER if has any of the following: --trouble breathing --persistent pain or pressure in the chest --new confusion --inability to wake or stay awake -- bluish lips or face If patient has been in close contact with anyone, they should be notified and instructed to quarantine per CDC guidelines for 14 days after last exposure to the positive COVID patient and monitor closely for symptoms of COVID. If they appear they should be tested. Close contact includes: --You were within 6 feet of someone who has COVID-19 for a total of 15 minutes or more --You provided care at home to someone who is sick with COVID-19 --You had direct physical contact with the person (hugged or kissed them) --You shared eating or drinking utensils --They sneezed, coughed, or somehow got respiratory droplets on you Additional Steps to avoid exposure/spread include: Avoid crowded places where close contact with others may occur, such as shopping centers, movie theaters, dormitories, or stadiums. Avoid transit where close contact with others may occur, such as planes, trains, and buses. Maintain a distance of approximately 6 feet from other people whenever possible (spacing out if you are in a line, leaving 2 seats in between others at a waiting room when possible). Wash your hands with soap and water often. If needed, use a hand glass decorator that contains at least 60% alcohol. Clean and disinfect frequently touched surfaces such as tables, doorknobs, countertops, etc daily. Avoid touching your eyes, nose, and mouth when possible. BMI 24.0-24.9, adult 01/26/2021 022 Assessment & Plan (01/26/2021 10:35 AM GYPSUM CALCINER): Weight/BMI is in healthy range. Continue healthy lifestyle to maintain. Annual physical exam 01/26/2021 022 Assessment & Plan (01/26/2021 11:29 PM GYPSUM CALCINER): Encouraged healthy lifestyle, good nutrition and exercise. Encouraged Calcium and Vitamin D and weight bearing exercise for bone health. Reviewed immunizations Reviewed age appropirate screenings. Other fatigue 02/24/2020 05/23/2023 Assessment & Plan (02/24/2020 8:31 PM GYPSUM CALCINER): Probably multifactorial. Check labs and followup to re-evaluate Need for Tdap vaccination 02/24/2020 Assessment & Plan (02/24/2020 8:31 PM GYPSUM CALCINER): Updated in office today BMI 25.0-25.9,adult 02/21/2020 01/27/20 21 Assessment & Plan (02/21/2020 3:09 PM GYPSUM CALCINER): Weight/BMI is in healthy range. Continue healthy lifestyle to maintain. Annual physical exam 10/07/2019 021 Assessment & Plan (10/07/2019 10:25 AM CDT): Encouraged healthy lifestyle, good nutrition and exercise. Encouraged Calcium and Vitamin D and weight bearing exercise for bone health. Reviewed immunizations Reviewed age appropirate screenings. Screening examination for ST D (sexually transmitted disease) 10/07/2019 01/26/2021 Assessment & Plan (02/24/2020 8:31 PM GYPSUM CALCINER): No known exposure Check labs Assessment & Plan (10/07/2019 10:25 AM CDT): Labs for STD provided BMI 22.0-22.9, adult 08/21/2019 021 Assessment & Plan (08/21/2019 10:26 AM CDT): Weight/BMI is in healthy range. Continue healthy lifestyle to maintain. Encounters Date Type Department Care Team Description 06/27/2024 Results Follow-Up [address] [id number] Mallory Berry PA Hepatitis panel, acute Blood, RPR Blood, HIV 1/2 Antibody plus p24 Antigen Blood, Additional followed-up results: 7 06/06/2024 2:30 PM CDT Office Visit [address] [phone] Mallory Berry PA Annual physical exam (Primary Dx); Attention deficit disorder (ADD) without hyperactivity; Screening examination for STD (sexually transmitted disease); Diabetes mellitus screening; Fatigue, unspecified type; BMI 28.0-28.9,adult from Last 3 Months Immunizations Immunization Administration Dates Next Due DTaP 06/04/2004, 1,1999,06/08,1999 HPV, Quadrivalent 01/10/2015,10/15/2014 HPV9 11/03/2015 Hep A, Unspecified 10/04/2011,10/15/2010 Hep B / HiB 1999,1999 Hep B, Unspecified 1999 HiB 02/05/2000 IPV 06/04/2004, 0,1999,04/26 Influenza, Quadrivalent, Spl it, Preservative Free, Intramuscular 11/21/2022 Influenza, Trivalent, Preser vative Free, Intramuscular 11/29/2023 Influenza, Unspecified 11/23/2022,2021,04/27/2021(Defer red: Patient Refused),01/26/2021(Deferred: Patient Refused),02/08/2020(Deferred: Patient Refused),10/11/2013,10/25/2012, 011 MMR 07/16/2022,06/04/2004,02/05/2000 Meningococcal Conjugate (Menveo) 11/03/2015 Meningococcal MCV4P (Menactra) 10/15/2010 Tdap 02/21/2020,07/09/2010 Varicella 08/01/2022,10/15/2010,02/05/2000 Surgical History Surgery Date Site/Laterality Comments WISDOM TOOTH EXTRACTION Medical History Medical History Date Comments ADHD (attention deficit hyperactivity disorder) Family History Medical History Relation Name Comments No Known Problems Father Cancer Maternal Grandmother Eye cancer Mother Skin cancer Mother Relation Name Status Comments Father Alive Maternal Grandmother Mother Alive Social History Tobacco Use Types Packs/Day Years Used Date Smoking Tobacco: Never Smokeless Tobacco: Never Tobacco Cessation:Counseling Given: Not Answered Alcohol Use Standard Drinks/Week Comments Never 0 (1 standard drink = 0.6 oz pur e alcohol) AUDIT-C Answer Date Recorded Frequency of Alcohol Consumption Not on file 06/06/2024 Q2: How many drinks containi ng alcohol do you have on a typical day when you are drinking? 1 or 2 06/06/2024 Q3: How often do you have si x or more drinks on one occasion? Never 06/06/2024 PHQ-2 Answer Date Recorded PHQ-2 Total Score (If total score is 3 or more points, staff should administer the PHQ-9) 0 06/06/2024 Comments Unknown Sex and Gender Information Value Date Recorded Sex Assigned at Not on file Legal Sex Female 4:44 AM GYPSUM CALCINER Gender Identity Not on file Sexual Orientation Not on file Occupation Industry Job Start Date Job End Date Student- Biology Not on file Not on file Not on file Obstetrics History Last Filed Vital Signs Vital Sign Reading Time Taken Comments Blood Pressure 110/68 06/06/2024 2:33 PM CDT Pulse 80 06/06/2024 2:33 PM CDT Temperature 37.2 C (98.9 F) 06/06/2024 2:33 PM CDT Respiratory Rate 20 11/25/2023 9:47 AM CDT Oxygen Saturation 99% 06/06/2024 2:33 PM CDT Inhaled Oxygen Concentration - - Weight 78.1 kg (172 lb 1.6 oz) 06/06/2024 2:33 P M CDT Height 165.1 cm (5' 5) 06/06/2024 2:33 PM CDT Body Mass Index 28.64 06/06/2024 2:33 PM CDT Plan of Treatment Health Maintenance Due Date Last Done Comments Cervical Cancer Screening 1999 Covid-19 Vaccine ( season) 2023 07/16/2022 Influenza Vaccine (#1) 2024 , 11/23/2022, 11/21/2022, Additional history exists Depression Screening 06/06/2025 06/06/2024, 01/09/2024, 09/22/2023, Additional history exists Regular Well Visit/Exam 18-64 06/06/2025 06/06/2024, 09/22/2023, 05/11/2023, Additional history exists DTaP/Tdap/Td Vaccine (8 - Td or Tdap) 02/20/2030 02/21/2020, 07/09/2010, 06/04/2004, Additional history exists Hepatitis B Screening Completed 1999 , 1999, 1999 HPV Vaccines Completed 11/03/2015, 05/2014, 10/15/2014 Varicella Vaccines Completed 08/01/2022, 0 10/15/2010, 02/05/2000 Hepatitis C Screening Completed 06/25/2024, 021 Pneumococcal vaccine <65 Aged Out No longer eligible based on patient's age to complete this topic Procedures Procedure Name Priority Date/Time Associated Diagnosis Comments TSH Routine 06/25/2024 12:03 PM CDT Fatigue, unspecified type VITAMIN D 25 HYDROXY Routine 06/25/2024 12:03 PM CDT Fatigue, unspecified type VITAMIN B12 Routine 06/25/2024 12:03 PM CDT Fatigue, unspecified type HEMOGLOBIN A1C Routine 06/25/2024 12:03 PM CDT Diabetes mellitus screening COMPREHENSIVE METABOLIC PANEL Routine 06/25/2024 12:03 PM CDT Fatigue, unspecified type CBC WITH AUTO DIFFERENTIAL Routine 06/25/2024 12:03 PM CDT Fatigue, unspecified type N. GONORRHOEAE/C. TRACHOMATIS AMPLIFICATION Routine 06/25/2024 12:03 PM CDT Screening examination for STD (sexually transmitted disease) HIV 1/2 ANTIBODY PLUS P24 ANTIGEN Routine 06/25/2024 12:03 PM CDT Screening examination for STD (sexually transmitted disease) RPR Routine 06/25/2024 12:03 PM CDT Screening examination for STD (sexually transmitted disease) HEPATITIS PANEL, ACUTE Routine 12:03 PM CDT Screening examination for STD (sexually transmitted disease) from Last 3 Months Results * N. gonorrhoeae/C. trachomatis Amplification Urine (06/25/2024 12:03 PM CDT) C. trachomatis RNA NOT DETECTED NOT DETECTED [facility] N. gonorrhoeae RNA NOT DETECTED NOT DETECTED [facility] Comment [facility] Comment: The analytical performance characteristics of this assay, when used to test SurePath(TM) specimens have been determined by [facility]. The modifications have not been cleared or approved by the FDA. This assay has been validated pursuant to the CLIA regulations and is used for clinical purposes. For additional information, please refer to https://education.Apostrophe Apps.KingX Studios/faq/GGX776 (This link is being provided for information/ educational purposes only.) Urine (None) 06/25/2024 12:0 3 PM CDT 06/25/2024 12:03 PM CDT us [facility] MICROBIOLOGY - GENERAL ORDERABLES Final Result [facility] [address] [place] [address] * HIV 1/2 Antibody plus p24 Antigen Blood (06/25/2024 12:03 PM CDT) Pathologist [facility] HIV Ag/Ab, 4th gen NON-REACT UNIQUE NON-REACT UNIQUE [facility] Comment: HIV-1 antigen and HIV-1/HIV-2 antibodies were not detected. There is no laboratory evidence of HIV infection. PLEASE NOTE: This information has been disclosed to you from records whose confidentiality may be protected by state law. If your state requires such protection, then the state law prohibits you from making any further disclosure of the information without the specific written consent of the person to whom it pertains, or as otherwise permitted by law. A general authorization for the release of medical or other information is NOT sufficient for this purpose. For additional information please refer to http://education.Anaphore/faq/ZLR392 (This link is being provided for informational/ educational purposes only.) The performance of this assay has not been clinically validated in patients less than 2 years old. Blood 06/25/2024 12:0 3 PM CDT 06/25/2024 12:03 PM CDT [facility] MICROBIOLOGY - GENERAL ORDERABLES Final Result [facility] [address] [place] [address] * CBC with auto differential (06/25/2024 12:03 PM CDT) Pathologist [facility] WBC 7.4 3.8 - 10.8 Thousand/u L [facility] RBC, POC 4.63 3.80 - 5.10 Million/uL [facility] Hgb 13.3 11.7 - 15.5 g/dL [facility] Hct 40.7 35.0 - 45.0 % [facility] MCV 87.9 80.0 - 100.0 fL [facility] MCH 28.7 27.0 - 33.0 pg [facility] MCHC 32.7 32.0 - 36.0 g/dL [facility] Comment: For adults, a slight decrease in the calculated MCHC value (in the range of 30 to 32 g/dL) is most likely not clinically significant; however, it should be interpreted with caution in correlation with other red cell parameters and the patient's clinical condition. Rdw 13.7 11.0 - 15.0 % [facility] Platelets 358 140 - 400 Thousand/u L [facility] MPV 9.8 7.5 - 12.5 fL [facility] Neutrophils, abs 4,011 1,500 - 7,800 cells/uL [facility] Lymphocytes, abs 2,538 850 - 3,900 cells/uL [facility] Monocyte abs 585 200 - 950 cells/uL [facility] Eosinophils, abs 229 15 - 500 cells/uL [facility] Basophils, abs 37 0 - 200 cells/uL [facility] Neutrophils 54.2 % [facility] Lymphocyte pct 34.3 % [facility] Monocytes 7.9 % [facility] Eosinophils 3.1 % [facility] Basophils 0.5 % [facility] Blood 06/25/2024 12:0 3 PM CDT 06/25/2024 12:03 PM CDT [facility] BLOOD ORDERABLES Final Result Performing Organization Address City/State/[facility] Co de Phone Number [facility] [address] [place] [address] * Hepatitis panel, acute Blood (06/25/2024 12:03 PM CDT) Hep A IgM NON-REACTI VE NON-REACT UNIQUE [facility] Comment: For additional information, please refer to http://education.Apostrophe Apps.KingX Studios/faq/RNZ018 (This link is being provided for informational/ educational purposes only.) HepBsAg NON-REACTI VE NON-REACT UNIQUE [facility] Comment: For additional information, please refer to http://23press.Anaphore/faq/MPN045 (This link is being provided for informational/ educational purposes only.) Hep B core IgM NON-REACTI VE NON-REACT UNIQUE [facility] Comment: For additional information, please refer to http://Plan B Media/faq/OOG826 (This link is being provided for informational/ educational purposes only.) Hep C Ab NON-REACTI VE NON-REACT UNIQUE [facility] Comment: HCV antibody was non-reactive. There is no laboratory evidence of HCV infection. In most cases, no further action is required. However, if recent HCV exposure is suspected, a test for HCV RNA (test code 60412) is suggested. For additional information please refer to http://Plan B Media/faq/KBL85e7 (This link is being provided for informational/ educational purposes only.) Blood 06/25/2024 12:0 3 PM CDT 06/25/2024 12:03 PM CDT us [facility] MICROBIOLOGY - GENERAL ORDERABLES Final Result [facility] [address] [place] [address] * (ABNORMAL) Vitamin D 25 hydroxy (06/25/2024 12:03 PM CDT) Vitamin D 25-OH 16(L) 30 - 100 ng/mL [facility] Comment: Vitamin D Status 25-OH Vitamin D: Deficiency: <20 ng/mL Insufficiency: 20 - 29 ng/mL Optimal: > or = 30 ng/mL For 25-OH Vitamin D testing on patients on D2-supplementation and patients for whom quantitation of D2 and D3 fractions is required, the [facility]TM) 25-OH VIT D, (D2,D3), LC/MS/MS is recommended: order code 09118 (patients >2yrs). See Note 1 Note 1 For additional information, please refer to http://23press.Youca.st/faq/PZE057 (This link is being provided for informational/ educational purposes only.) Blood 06/25/2024 12:0 3 PM CDT 06/25/2024 12:03 PM CDT [facility] BLOOD ORDERABLES Final Result Performing Organization Address [facility]/ZIP Co de Phone Number [facility] [address] [facility] [place] [address] * RPR Blood (06/25/2024 12:03 PM CDT) Pathologist [facility] RPR NON-REACTIV E NON-REACTI VE [facility] Blood 06/25/2024 12:0 3 PM CDT 06/25/2024 12:03 PM CDT [facility] MICROBIOLOGY - GENERAL ORDERABLES Final Result Performing Organization Address [facility] de Phone Number [facility] [address] [facility] [place] [address] * TSH (06/25/2024 12:03 PM CDT) Pathologist [facility] TSH 2.24 mIU/L [facility] Comment: Reference Range > or = 20 Years 0.40-4.50 Ranges First trimester 0.26-2.66 Second trimester 0.55-2.73 Third trimester 0.43-2.91 Blood 06/25/2024 12:0 3 PM CDT 06/25/2024 12:03 PM CDT [facility] BLOOD ORDERABLES Final Result Performing Organization Address [facility] Co de Phone Number [facility] [address] [facility] [place] [address] * Hemoglobin A1c (06/25/2024 12:03 PM CDT) Pathologist [facility] Hgb A1C 5.5 <5.7 % of total Hgb [facility] Comment: For the purpose of screening for the presence of diabetes: <5.7% Consistent with the absence of diabetes 5.7-6.4% Consistent with increased risk for diabetes (prediabetes) > or =6.5% Consistent with diabetes This assay result is consistent with a decreased risk of diabetes. Currently, no consensus exists regarding use of hemoglobin A1c for diagnosis of diabetes in children. According to [place] Diabetes Association (ADA) guidelines, hemoglobin A1c <7.0% represents optimal control in non- diabetic patients. Different metrics may apply to specific patient populations. Standards of Medical Care in Diabetes(ADA). Blood 06/25/2024 12:0 3 PM CDT 06/25/2024 12:03 PM CDT Mallory OTOOLE LAB BLOOD ORDERABLES Final Result Performing Organization Address City/[facility]/ZIP Co de Phone Number QUEST [facility] [address] [place] [address] * Vitamin B12 (06/25/2024 12:03 PM CDT) [facility] Vitamin B12 666 200 - 1,100 pg/mL [facility] Blood 06/25/2024 12:0 3 PM CDT 06/25/2024 12:03 PM CDT Mallory OTOOLE LAB BLOOD ORDERABLES Final Result [facility]ST [facility] [address] [place] [address] * (ABNORMAL) Comprehensive metabolic panel (06/25/2024 12:03 PM CDT) Pathologist [facility] Glucose 106(H) 65 - 99 mg/dL [facility] Comment: Fasting reference interval For someone without known diabetes, a glucose value between 100 and 125 mg/dL is consistent with prediabetes and should be confirmed with a follow-up test. BUN 12 7 - 25 mg/dL [facility] Creatinine 0.82 0.50 - 0.96 mg/dL [facility] eGFR 102 > OR = 60 mL/min/1.7 3m2 [facility] BUN/creat ratio SEE NOTE: 6 - 22 (calc) [facility] Comment: Not Reported: BUN and Creatinine are within reference range. Sodium 138 135 - 146 mmol/L [facility] Potassium, pl 4.2 3.5 - 5.3 mmol/L [facility] Chloride 103 98 - 110 mmol/L [facility] CO2 26 20 - 32 mmol/L [facility] Calcium 9.5 8.6 - 10.2 mg/dL [facility] Protein, sr 7.4 6.1 - 8.1 g/dL [facility] Albumin 4.5 3.6 - 5.1 g/dL [facility] GLOBULIN 2.9 1.9 - 3.7 g/dL (calc) [facility] Alb/glob ratio 1.6 1.0 - 2.5 (calc) [facility] Bilirubin, total 0.6 0.2 - 1.2 mg/dL [facility] Alk phos 82 31 - 125 U/L [facility] AST 13 10 - 30 U/L [facility] ALT (SGPT) 16 6 - 29 U/L [facility] Blood 06/25/2024 12:0 3 PM CDT 06/25/2024 12:03 PM CDT us Mallory OTOOLE LAB BLOOD ORDERABLES Final Result [facility] [address] [phone] from Last 3 Months Insurance ANTH ACCESS CHOICE ANTHEM ACCESS CHOICE ANTHEM ACCESS CHOICE Care Teams Expressive Art Therapist Relationship Specialty Start Date End Date Mallory Berry PA [address] [place] [address] PCP - General Internal Medicine 05/07/19
--- OUTSIDE RECORDS SUMMARY | 2024-09-05 07:54 | XMS_ITS | Clinical Summary ---
Author Organization [facility] Health Address [address] [place] [address] Care Team Providers Care Senior C Software Developer Name Role Phone Mallory Berry PA-C Primary Care Provider [phone] Source Comments [facility],non-owned Affiliates and Associated Physician Practices is amultiple site organization consisting of ambulatory clinics and hospital sitesin [place], [place], [place] and [place]. This disclosure is being madepursuant to the Care Everywhere program and may not contain all information available regarding this patient. Last updated 17.[facility] [employer] Allergies No known active allergies Social History Tobacco Use Types Packs/Day Years Used Date Smoking Tobacco: Never Assessed Comments No Sex and Gender Information Value Date Recorded Sex Assigned at Not on file Legal Sex Female 7:37 AM CDT Gender Identity Not on file Sexual Orientation Not on file Last Filed Vital Signs Vital Sign Reading Time Taken Comments Blood Pressure 113/62 03/31/2023 9:28 PM NATURAL GAS BASIS TRADER Pulse 93 03/31/2023 9:26 PM NATURAL GAS BASIS TRADER Temperature 36.4 C (97.5 F) 03/31/2023 9:26 PM NATURAL GAS BASIS TRADER Respiratory Rate 20 03/31/2023 9:26 PM NATURAL GAS BASIS TRADER Oxygen Saturation 99% 03/31/2023 9:26 PM NATURAL GAS BASIS TRADER Inhaled Oxygen Concentration - - Weight 69.9 kg (154 lb) 03/31/2023 10:07 PM NATURAL GAS BASIS TRADER Height 162.6 cm (5' 4) 03/31/2023 9:26 PM NATURAL GAS BASIS TRADER Body Mass Index 26.43 03/31/2023 9:26 PM NATURAL GAS BASIS TRADER Plan of Treatment Health Maintenance Due Date Last Done Comments HIV SCREENING 2014 HPV VACCINE (1 - 3-dose series) 2014 HEPATITIS C SCREENING 01/30/2017 DTAP/TDAP/TD VACCINES (1 - Tdap) 2018 HEPATITIS B VACCINE (1 of 3 - 19+ 3-dose series) 2018 CHLAMYDIA/GONORRHEA SCREENING 10/05/2023 10/04/2022 COVID-19 VACCINE (2 - season) 2023 07/16/2022 DEPRESSION SCREENING 02/08/2024 INFLUENZA VACCINE (#1) 2024 , 11/21/2022, 12/08/2021, Additional history exists PAP SMEAR 10/04/2025 10/04/2022, 10/04/2022 ZOSTER VACCINE (1 of 2) 2049 HIB VACCINE Aged Out No longer eligi ble based on patient's age to complete this topic MENINGOCOCCAL (Group B) VACCINE SHARED DECISION-MAKING Aged Out No longer eligible based on patient's age to complete this topic MENINGOCOCCAL GROUPS A/C/Y/W VACCINE Aged Out No longer eligible based on patient's age to complete this topic PNEUMOCOCCAL VACCINE Aged Out No long er eligible based on patient's age to complete this topic Insurance ANTHEM ANTHEM ANTHEM ANTHEM Care Teams Senior C Software Developer Relationship Specialty Start Date End Date Mallory Berry PANani [address] [place] [address] PCP - General Physician Prescriptionist 03/31/23
--- OUTSIDE RECORDS SUMMARY | 2024-09-05 07:54 | XMS_ITS | Referral Summary ---
Author Organization [facility] Address [address] [place] [address] Care Team Providers Care Mobile Development Manager Name Role Phone Mallory Berry Primary Care Provider [phone] Encounters Date Type Department Care Team Description 06/27/2024 Results Follow-Up [address] [place] [address] Mallory Berry PA Hepatitis panel, acute Blood, RPR Blood, HIV 1/2 Antibody plus p24 Antigen Blood, Additional followed-up results: 7 06/06/2024 2:30 PM CDT Office Visit [address] [place] [phone] Mallory Berry PA Annual physical exam (Primary Dx); Attention deficit disorder (ADD) without hyperactivity; Screening examination for STD (sexually transmitted disease); Diabetes mellitus screening; Fatigue, unspecified type; BMI 28.0-28.9,adult from Last 3 Months Allergies No known active allergies Medications etonogestreL [...] maintain. Assessment & Plan (01/09/2024 11:05 AM PHYSICIAN ANESTHESIOLOGIST): BMI Follow-up includes: Discussed diet and exercising counseling. Sore throat 01/09/2024 Assessment & Plan (01/09/2024 1:36 PM PHYSICIAN ANESTHESIOLOGIST): Patient states she has had persistent sore [...] 05/23/2023 Assessment & Plan (01/09/2024 1:36 PM PHYSICIAN ANESTHESIOLOGIST): Nexplanon in place. Happy with control regimen Assessment & Plan (10/02/2023 8:59 PM CDT): Nexplanon in place for control Assessment & Plan (05/23/2023 12:28 AM CDT): Next month in place. Using for control. History of COVID-19 02/15/2021 Overview (02/15/2021): 02/2021 Elevated liver enzymes 01/26/2021 Assessment & Plan (01/26/2021 11:28 PM PHYSICIAN ANESTHESIOLOGIST): Recheck labs Attention deficit disorder (ADD) without hyperac tivity 10/07/2019 Assessment & Plan (06/06/2024 8:11 PM CDT): Adult ADD is well controlled with Vyvanse 50. Refills will be available. Follow up in the office in about 4 months to reassess or sooner for any other problems or concerns Assessment & Plan (01/09/2024 1:36 PM PHYSICIAN ANESTHESIOLOGIST): Symptoms are stable with the Vyvanse 50. [...] dose. Assessment & Plan (01/10/2022 12:11 AM PHYSICIAN ANESTHESIOLOGIST): Tolerating the Vyvanse 50 well with good [...] semester. Assessment & Plan (01/26/2021 11:23 PM PHYSICIAN ANESTHESIOLOGIST): Stable with the Vyvanse 50 mg. Refills sent to pharmacy. Assessment & Plan (02/24/2020 8:32 PM PHYSICIAN ANESTHESIOLOGIST): Continue Vyvanse. Still encouraged counseling on campus. [...] age appropirate screenings. BMI 30.0-30.9,adult 05/23/2023 09/22/19 Assessment & Plan (05/23/2023 12:29 AM CDT): [...] 023 Assessment & Plan (01/06/2022 7:59 AM PHYSICIAN ANESTHESIOLOGIST): Weight/BMI is in healthy range. Continue healthy [...] 05/23/2023 Assessment & Plan (02/13/2021 8:51 PM PHYSICIAN ANESTHESIOLOGIST): Patient to presume positive COVID/FLU until results are available and plan to self isolate for up to 10 days from the onset of sxs. Check COVID/FLU test thru [facility] collection site in [place]. If positive COVID, complete 10 day quarantine [...] water often. If needed, use a hand reservationist that contains at least 60% alcohol. Clean and disinfect frequently touched surfaces such as tables, doorknobs, countertops, etc daily. Avoid touching your eyes, nose, and mouth when possible. BMI 24.0-24.9, adult 01/26/2021 022 Assessment & Plan (01/26/2021 10:35 AM PHYSICIAN ANESTHESIOLOGIST): Weight/BMI is in healthy range. Continue healthy lifestyle to maintain. Annual physical exam 01/26/2021 022 Assessment & Plan (01/26/2021 11:29 PM PHYSICIAN ANESTHESIOLOGIST): Encouraged healthy lifestyle, good nutrition and exercise. Encouraged Calcium and Vitamin D and weight bearing exercise for bone health. Reviewed immunizations Reviewed age appropirate screenings. Other fatigue 02/24/2020 05/23/2023 Assessment & Plan (02/24/2020 8:31 PM PHYSICIAN ANESTHESIOLOGIST): Probably multifactorial. Check labs and followup to re-evaluate Need for Tdap vaccination 02/24/2020 Assessment & Plan (02/24/2020 8:31 PM PHYSICIAN ANESTHESIOLOGIST): Updated in office today BMI 25.0-25.9,adult 02/21/2020 01/27/20 Assessment & Plan (02/21/2020 3:09 PM PHYSICIAN ANESTHESIOLOGIST): Weight/BMI is in healthy range. Continue healthy lifestyle to maintain. Annual physical exam 10/07/2019 Assessment & Plan (10/07/2019 10:25 AM CDT): Encouraged healthy lifestyle, good nutrition and exercise. Encouraged Calcium and Vitamin D and weight bearing exercise for bone health. Reviewed immunizations Reviewed age appropirate screenings. Screening examination for ST D (sexually transmitted disease) 10/07/2019 01/26/2021 Assessment & Plan (02/24/2020 8:31 PM PHYSICIAN ANESTHESIOLOGIST): No known exposure Check labs Assessment & Plan (10/07/2019 10:25 AM CDT): Labs for STD provided BMI 22.0-22.9, adult 08/21/2019 021 Assessment & Plan (08/21/2019 10:26 AM CDT): Weight/BMI is in healthy range. Continue healthy lifestyle to maintain. Immunizations Immunization Administration Dates Next Due DTaP [...] MCV4P (Menactra) 10/15/2010 Tdap 02/21/2020,07/09/2010 Varicella 08/01/2022,10/15/2010,02/05/2000 Social History Tobacco Use Types Packs/Day Years [...] on file Legal Sex Female 4:44 AM PHYSICIAN ANESTHESIOLOGIST Gender Identity Not on file Sexual Orientation Not on file Occupation Industry Job Start Date Job End Date Student- Biology Not on file Not on file Not on file Last Filed Vital Signs [...] 06/06/2024 2:33 PM CDT Plan of Treatment Not on file Procedures Procedure Name Priority Date/Time Associated Diagnosis [...] RNA NOT DETECTED NOT DETECTED [facility] N. gonorrhoeae RNA NOT DETECTED NOT DETECTED [facility] Comment [facility] Comment: The analytical performance characteristics of this assay, when used to test SurePath(TM) specimens have been determined by [facility]. The modifications have not been cleared or approved by the FDA. This assay has been validated pursuant to the CLIA regulations and is used for clinical purposes. For additional information, please refer to https://Amber[employer].Tier 1 Performance/faq/WRK537 (This link is being provided for information/ educational purposes only.) Urine (None) 06/25/2024 12:0 3 PM CDT 06/25/2024 12:03 PM CDT Mallory OTOOLE LAB MICROBIOLOGY - GENERAL ORDERABLES Final Result [facility] [address] [place] [address] * HIV 1/2 Antibody plus p24 Antigen Blood (06/25/2024 12:03 PM CDT) HIV Ag/Ab, 4th gen NON-REACT UNIQUE NON-REACT UNIQUE [facility] Comment: HIV-1 antigen and HIV-1/HIV-2 antibodies were [...] purpose. For additional information please refer to http://[employer].[email or web address] 1 Performance/faq/BOT033 (This link is being provided for informational/ educational purposes only.) The performance of this assay has not been clinically validated in patients less than 2 years old. Blood 06/25/2024 12:0 3 PM CDT 06/25/2024 12:03 PM CDT Mallory OTOOLE LAB MICROBIOLOGY - GENERAL ORDERABLES Final Result Performing Organization Address City/[facility]/ZIP Co de Phone Number [facility] [address] [place] [address] * CBC with auto differential (06/25/2024 12:03 PM CDT) [facility] WBC 7.4 3.8 - 10.8 Thousand/u L [...] BLOOD ORDERABLES Final Result Performing Organization Address City/[facility]/ZIP Co de Phone Number LANDEN [facility] [address] [phone] * Hepatitis panel, acute Blood (06/25/2024 12:03 PM CDT) Hep A IgM NON-REACTI VE NON-REACT UNIQUE [facility] Comment: For additional information, please refer to http://QSecure/faq/PDF999 (This link is being provided for informational/ educational purposes only.) HepBsAg NON-REACTI VE NON-REACT UNIQUE [facility] Comment: For additional information, please refer to http://[employer]ure/faq/QRI853 (This link is being provided for informational/ educational purposes only.) Hep B core IgM NON-REACTI VE NON-REACT UNIQUE [facility] Comment: For additional information, please refer to http://QSecure/faq/UDS448 (This link is being provided for informational/ educational purposes only.) Hep C Ab NON-REACTI VE NON-REACT UNIQUE [facility] Comment: HCV antibody was non-reactive. There is no laboratory evidence of HCV infection. In most cases, no further action is required. However, if recent HCV exposure is suspected, a test for HCV RNA (test code 27623) is suggested. For additional information please refer to http://QSecure/faq/NAB10s6 (This link is being provided for informational/ educational purposes only.) Blood 06/25/2024 12:0 3 PM CDT 06/25/2024 12:03 PM CDT Mallory OTOOLE LAB MICROBIOLOGY - GENERAL ORDERABLES Final Result LANDEN [facility] [address] [phone] * (ABNORMAL) Vitamin D 25 hydroxy (06/25/2024 12:03 PM CDT) Pathologist [facility] Vitamin D 25-OH 16(L) 30 - 100 [...] D, (D2,D3), LC/MS/MS is recommended: order code 75777 (patients >2yrs). See Note 1 Note 1 For additional information, please refer to http://education.[employer]/faq/HFX878 (This link is being provided for informational/ educational purposes only.) Blood 06/25/2024 12:0 3 PM CDT 06/25/2024 12:03 PM CDT Mallory OTOOLE LAB BLOOD ORDERABLES Final Result Performing Organization Address City/[facility]/ZIP Co de Phone Number QUEST [facility] [address] [place] [address] * RPR Blood (06/25/2024 12:03 PM CDT) [facility] RPR NON-REACTIV E NON-REACTI VE [facility] Blood 06/25/2024 12:0 3 PM CDT 06/25/2024 12:03 PM CDT Mallory OTOOLE LAB MICROBIOLOGY - GENERAL ORDERABLES Final Result [facility] [address] [place] [address] * TSH (06/25/2024 12:03 PM CDT) [facility] TSH 2.24 mIU/L [facility] Comment: Reference Range > or = 20 Years 0.40-4.50 Ranges First trimester 0.26-2.66 Second trimester 0.55-2.73 Third trimester 0.43-2.91 Blood 06/25/2024 12:0 3 PM CDT 06/25/2024 12:03 PM CDT Mallory OTOOLE LAB BLOOD ORDERABLES Final Result [facility] [address] [place] [address] * Hemoglobin A1c (06/25/2024 12:03 PM CDT) Hgb A1C 5.5 <5.7 % of total Hgb [facility] Comment: For the purpose of screening for the presence of diabetes: <5.7% Consistent with the absence of diabetes 5.7-6.4% Consistent with increased risk for diabetes (prediabetes) > or =6.5% Consistent with diabetes This assay result is consistent with a decreased risk of diabetes. Currently, no consensus exists regarding use of hemoglobin A1c for diagnosis of diabetes in children. According to [place] Diabetes Association (ADA) guidelines, hemoglobin A1c <7.0% represents optimal control in non- diabetic patients. Different metrics may apply to specific patient populations. Standards of Medical Care in Diabetes(ADA). Blood 06/25/2024 12:0 3 PM CDT 06/25/2024 12:03 PM CDT Mallory OTOOLE LAB BLOOD ORDERABLES Final Result Performing Organization Address City/[facility]/ZIP Co de Phone Number [facility] [address] [place] [address] * Vitamin B12 (06/25/2024 12:03 PM CDT) Vitamin B12 666 200 - 1,100 pg/mL [facility] Blood 06/25/2024 12:0 3 PM CDT 06/25/2024 12:03 PM CDT Mallory OTOOLE LAB BLOOD ORDERABLES Final Result [facility] [address] [phone] * (ABNORMAL) Comprehensive metabolic panel (06/25/2024 12:03 PM CDT) Pathologist [facility] Glucose 106(H) 65 - 99 mg/dL [facility] [...] Mallory OTOOLE LAB BLOOD ORDERABLES Final Result [facility] [address] [phone] from Last 3 Months Insurance [employer] ACCESS CHOICE [employer] ACCESS CHOICE [facility] ACC[facility] CHOICE Care Teams Mobile Development Manager Relationship Specialty Start Date End Date Mallory Berry PA [address] [facility] [[email or web address]] [address] [place] [address] PCP - General Internal Medicine 05/07/19
[2024-09-05 08:21] LABS: Hematocrit 35.2 % (37.0-47.0); Hemoglobin 11.9 g/dL (12.0-15.0)
== END 2024-09-05 07:47 | disposition home or self-care (01) ==
LOC: ANHSURGERY 07:49
PROVIDERS: Anesthesiology; PCP Physician Assistant; Visit Provider Otolaryngology
DX: D64.9 Anemia, unspecified (principal)
CPT/HCPCS: 36415; 85014; 85018

== ENCOUNTER 2024-09-10 01:31 | Day surgery (SDC) | payer BC, SELFPAY ==
[2024-08-30 15:22] VITALS: BMI 25.0
--- NOTE | 2024-08-30 15:42 | PC.NURSE ---
Report to the Outpatient Waiting Room, entrance under the green pavilion located off [facility], at 0730 on 09-10-24. Planned Procedure Time: 0930.? Time changes happen often and if your time is changed the preop area will call you the afternoon before. - You and your visitor will be asked to self-screen and do not enter if you have any COVID symptoms. Please call surgeon if you need to reschedule. - A mask is optional within the hospital at this time. Patients may have clear liquids (water, carbonated beverages, clear teas, apple juice) until 3 hours prior to surgery with a maximum of 20 ounces. - No food from midnight until time of surgery and no smoking, or chewing tobacco (or any form of nicotine). No chewing gum, candy or mints. - Infants may have breast milk until 4 hours before surgery, infant formula 6 hours prior to surgery. - Children will be allowed to drink immediately following surgery.? If applicable, please bring a bottle or sippy cup to assist with drinking. Juice, water, soda, and popsicles are readily available.? For infants on formula, please bring formula the day of surgery.? Pacifiers are allowed. Take only the following medications with a SIP of water on the morning of surgery: None DO NOT STOP ANY OF YOUR OTHER PRESCRIPTION MEDICATIONS PRIOR TO SURGERY EXCEPT THE FOLLOWING Hold all vitamins and supplements for 3 days per anesthesiologist. Medications to discontinue per physician: N/A Please no make-up, nail albanian, hairspray, perfume, deodorant, or body powder the day of surgery.? No jewelry (including any body piercings) or valuables the day of surgery, leave them at home.? Please take a shower or bath the night before, or the morning of, surgery with an antibacterial soap.? Wear comfortable, loose fitting clothing.? Children are encouraged to wear pajamas. - Jewelry must be removed prior to entering the operating room.? Rings and piercings that are not removed may be cut off. - The hospital will not accept responsibility for valuables.? - Please leave all valuables, including medications, at home the day of surgery. If you are going home after surgery, a licensed driver retraining instructor must drive you home.? - NO public transportation without another adult if you receive anesthesia. - We recommend that an adult stay with you for 24 hours following discharge. - We also recommend that you do not drive, make important decision, drink alcoholic beverages, or take any drugs that were not prescribed by your health care provider for at least 24 hours after your discharge time. For Pediatric surgeries, we recommend two adults accompany the child home. Follow any additional instructions given to you from your surgeon. Telephone instructions given to Promise Brown and asked if any additional questions and then verbalized understanding. Patient advised to call surgeon office or pre surgery nurse liaison [phone] if any additional questions.
--- NOTE | 2024-09-09 15:31 | PM.IMHP ---
H&P: HPI History of Present Illness Date/Time: 09/09/24 15:31 Chief Complaint: Recurrent tonsillitis chronic tonsillitis adenoid hypertrophy snoring presents for planned surgical procedure. Review of Systems Review of Systems: All systems reviewed & are unremarkable except as noted in HPI and below PMFSH Past Medical History Medical History History of ADHD Social History Social History Smoking status: Never smoker Second hand tobacco smoke exposure: No Alcohol intake: current Alcohol use details: socially Substance use: never Substance use type: does not use Living arrangements: with family Spiritual care concerns: No Meds Home Medications and Allergies Home Medications ?Medication ?Instructions ?Recorded ?Confirmed ?Type lisdexamfetamine 50 mg capsule 50 mg PO DAILY 12/04/21 08/30/24 History (Vyvanse) etonogestrel 68 mg subdermal 1 implant subdermal ONCE 02/26/23 08/30/24 History implant (Nexplanon) ferrous sulfate 325 mg (65 mg 325 mg PO DAILY 08/30/24 08/30/24 History iron) tablet Allergies Allergy/AdvReac Type Severity Reaction Status Date / Time No Known Allergies Allergy Verified 08/30/24 15:20 Exam Narrative: Large tonsils large adenoids Assessment and Plan Assessment and plan (1) Snoring: Code(s): R06.83 - Snoring Status: Acute Assessment and Plan: plan OR tonsillectomy adenoidectomy risks were discussed bleeding infection damage to structures need further procedures change in taste changes swallow could be permanent the resolve symptoms. Postoperative bleeding 5% chance time off work time off school inherent risks of narcotic use. Patient voiced understanding of these risks and agreed. (2) Adenoid hypertrophy: Code(s): J35.2 - Hypertrophy of adenoids Status: Acute (3) Recurrent tonsillitis: Code(s): J03.91 - Acute recurrent tonsillitis, unspecified Status: Acute (4) Tonsillar hypertrophy: Code(s): J35.1 - Hypertrophy of tonsils Status: Acute
[2024-09-10] VITALS (9 sets, daily range): BP systolic 94–125; BP diastolic 58–87; PULSE 54–107; RESP 10–22; TEMP 36.5–36.7; O2SAT 97–100; BMI 25.1
--- OUTSIDE RECORDS SUMMARY | 2024-09-10 01:33 | XMS_ITS | Referral Summary ---
Author Organization [facility] Address [address] [place] [id number] Care Team Providers Care Electrical Machine Builder Name Role Phone Mallory Berry Primary Care Provider [phone] Encounters Date Type Department Care Team Description 06/27/2024 Results Follow-Up [facility] Family Medicine [address] [place] [phone] Mallory Berry PA Hepatitis panel, acute Blood, RPR Blood, HIV 1/2 Antibody plus p24 Antigen Blood, Additional followed-up results: 7 from Last 3 Months Allergies No known [...] maintain. Assessment & Plan (01/09/2024 11:05 AM GAMES MANAGER): BMI Follow-up includes: Discussed diet and exercising counseling. Sore throat 01/09/2024 Assessment & Plan (01/09/2024 1:36 PM GAMES MANAGER): Patient states she has had persistent sore [...] 05/23/2023 Assessment & Plan (01/09/2024 1:36 PM GAMES MANAGER): Nexplanon in place. Happy with control regimen Assessment & Plan (10/02/2023 8:59 PM CDT): Nexplanon in place for control Assessment & Plan (05/23/2023 12:28 AM CDT): Next month in place. Using for control. 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 Refills will be available. Follow up in the office in about 4 months to reassess or sooner for any other problems or concerns Assessment & Plan (01/09/2024 1:36 PM GAMES MANAGER): Symptoms are stable with the Vyvanse 50. [...] dose. Assessment & Plan (01/10/2022 12:11 AM GAMES MANAGER): Tolerating the Vyvanse 50 well with good [...] semester. Assessment & Plan (01/26/2021 11:23 PM GAMES MANAGER): Stable with the Vyvanse 50 mg. Refills sent to pharmacy. Assessment & Plan (02/24/2020 8:32 PM GAMES MANAGER): Continue Vyvanse. Still encouraged counseling on campus. [...] 023 Assessment & Plan (01/06/2022 7:59 AM GAMES MANAGER): Weight/BMI is in healthy range. Continue healthy lifestyle to maintain. BMI 24.0-24.9, adult 08/31/2021 022 Assessment & Plan (08/31/2021 10:22 AM CDT): Weight/BMI is in healthy range. Continue healthy lifestyle to maintain. BMI 29.0-29.9,adult 04/27/2021 01/09/20 Assessment & Plan (10/02/2023 9:00 PM CDT): Weight/BMI is in healthy range. Continue healthy lifestyle to maintain. Assessment & Plan (04/27/2021 10:58 AM CDT): Weight/BMI is in healthy range. Continue healthy lifestyle to maintain. Cough 02/13/2021 05/23/2023 Assessment & Plan (02/13/2021 8:51 PM GAMES MANAGER): Patient to presume positive COVID/FLU until results are available and plan to self isolate for up to 10 days from the onset of sxs. Check COVID/FLU test thru [facility] collection site in [place]. If positive COVID, complete 10 day quarantine [...] water often. If needed, use a hand furniture assembler and installer that contains at least 60% alcohol. Clean and disinfect frequently touched surfaces such as tables, doorknobs, countertops, etc daily. Avoid touching your eyes, nose, and mouth when possible. BMI 24.0-24.9, adult 01/26/2021 Assessment & Plan (01/26/2021 10:35 AM GAMES MANAGER): Weight/BMI is in healthy range. Continue healthy lifestyle to maintain. Annual physical exam 01/26/2021 Assessment & Plan (01/26/2021 11:29 PM GAMES MANAGER): Encouraged healthy lifestyle, good nutrition and exercise. Encouraged Calcium and Vitamin D and weight bearing exercise for bone health. Reviewed immunizations Reviewed age appropirate screenings. Other fatigue 02/24/2020 05/23/2023 Assessment & Plan (02/24/2020 8:31 PM GAMES MANAGER): Probably multifactorial. Check labs and followup to re-evaluate Need for Tdap vaccination 02/24/2020 Assessment & Plan (02/24/2020 8:31 PM GAMES MANAGER): Updated in office today BMI 25.0-25.9,adult 02/21/2020 01/27/20 Assessment & Plan (02/21/2020 3:09 PM GAMES MANAGER): Weight/BMI is in healthy range. Continue healthy lifestyle to maintain. Annual physical exam 10/07/2019 Assessment & Plan (10/07/2019 10:25 AM CDT): Encouraged healthy lifestyle, good nutrition and exercise. Encouraged Calcium and Vitamin D and weight bearing exercise for bone health. Reviewed immunizations Reviewed age appropirate screenings. Screening examination for ST D (sexually transmitted disease) 10/07/2019 01/26/2021 Assessment & Plan (02/24/2020 8:31 PM GAMES MANAGER): No known exposure Check labs Assessment & [...] on file Legal Sex Female 4:44 AM GAMES MANAGER Gender Identity Not on file Sexual Orientation [...] RNA NOT DETECTED NOT DETECTED [facility] N. gonorrhoeae RNA NOT DETECTED NOT DETECTED [facility] Comment [facility] Comment: The analytical performance characteristics of this assay, when used to test SurePath(TM) specimens have been determined by [facility]. The modifications have not been cleared or approved by the FDA. This assay has been validated pursuant to the CLIA regulations and is used for clinical purposes. For additional information, please refer to https://education.[employer].XTRM/faq/FQO987 (This link is being provided for information/ educational purposes only.) Urine (None) 06/25/2024 12:0 3 PM CDT 06/25/2024 12:03 PM CDT Mallory OTOOLE LAB MICROBIOLOGY - GENERAL ORDERABLES Final Result Performing Organization Address [facility] Co de Phone Number [facility] [address] [place] [address] * HIV 1/2 Antibody plus p24 Antigen Blood (06/25/2024 12:03 PM CDT) Pathologist [facility] HIV Ag/Ab, 4th gen NON-REACT UNIQUE NON-REACT UNIQUE [facility] Comment: HIV-1 antigen and HIV-1/HIV-2 antibodies were [...] purpose. For additional information please refer to http://education.[employer]/faq/VZM126 (This link is being provided for informational/ educational purposes only.) The performance of this assay has not been clinically validated in patients less than 2 years old. Blood 06/25/2024 12:0 3 PM CDT 06/25/2024 12:03 PM CDT Mallory OTOOLE LAB MICROBIOLOGY - GENERAL ORDERABLES Final Result Performing Organization Address [facility] Co de Phone Number [facility] [address] [place] [address] * CBC with auto differential (06/25/2024 12:03 PM CDT) [facility] WBC 7.4 3.8 - 10.8 Thousand/u [...] LAB BLOOD ORDERABLES Final Result [facility] [address] [place] [id number] * Hepatitis panel, acute Blood (06/25/2024 12:03 PM CDT) Hep A IgM NON-REACTI VE NON-REACT UNIQUE [facility] Comment: For additional information, please refer to http://education.[employer].com/faq/YUF719 (This link is being provided for informational/ educational purposes only.) HepBsAg NON-REACTI VE NON-REACT UNIQUE [facility] Comment: For additional information, please refer to http://[employer]/faq/ZBW767 (This link is being provided for informational/ educational purposes only.) Hep B core IgM NON-REACTI VE NON-REACT UNIQUE [facility] Comment: For additional information, please refer to http://[employer]/faq/OOU214 (This link is being provided for informational/ educational purposes only.) Hep C Ab NON-REACTI VE NON-REACT UNIQUE [facility] Comment: HCV antibody was non-reactive. There is no laboratory evidence of HCV infection. In most cases, no further action is required. However, if recent HCV exposure is suspected, a test for HCV RNA (test code 35226) is suggested. For additional information please refer to http://[employer]/faq/WOM79o2 (This link is being provided for informational/ educational purposes only.) Blood 06/25/2024 12:0 3 PM CDT 06/25/2024 12:03 PM CDT Mallory OTOOLE LAB MICROBIOLOGY - GENERAL ORDERABLES Final Result [facility] [address] [place] [address] * (ABNORMAL) Vitamin D 25 hydroxy (06/25/2024 [...] D, (D2,D3), LC/MS/MS is recommended: order code 70802 (patients >2yrs). See Note 1 Note 1 For additional information, please refer to http://education.[employer]/faq/OLK320 (This link is being provided for informational/ educational purposes only.) Blood 06/25/2024 12:0 3 PM CDT 06/25/2024 12:03 PM CDT Mallory OTOOLE LAB BLOOD ORDERABLES Final Result Performing Organization Address [facility] de Phone Number [facility] [facility] [address] [place] [address] * RPR Blood (06/25/2024 12:03 PM CDT) RPR NON-REACTIV E NON-REACTI VE [facility] Blood 06/25/2024 12:0 3 PM CDT 06/25/2024 12:03 PM CDT Mallory OTOOLE LAB MICROBIOLOGY - GENERAL ORDERABLES Final Result Performing Organization Address [facility] Phone Number [facility] [address] [place] [address] * TSH (06/25/2024 12:03 PM CDT) TSH 2.24 mIU/L [facility] Comment: Reference Range > or = 20 Years 0.40-4.50 Ranges First trimester 0.26-2.66 Second trimester 0.55-2.73 Third trimester 0.43-2.91 Blood 06/25/2024 12:0 3 PM CDT 06/25/2024 12:03 PM CDT Mallory OTOOLE LAB BLOOD ORDERABLES Final Result Performing Organization Address [facility] de Phone Number [facility] [address] [facility] [place] [address] * Hemoglobin A1c (06/25/2024 12:03 PM CDT) [facility] Hgb A1C 5.5 <5.7 % of total Hgb [facility] Comment: For the purpose of screening [...] Mallory OTOOLE LAB BLOOD ORDERABLES Final Result [facility] [address] [place] [address] * Vitamin B12 (06/25/2024 12:03 PM CDT) [facility] Vitamin B12 666 200 - 1,100 pg/mL [facility] Blood 06/25/2024 12:0 3 PM CDT 06/25/2024 12:03 PM CDT Mallory OTOOLE LAB BLOOD ORDERABLES Final Result [facility] [place] [address] [facility] [place] [address] * (ABNORMAL) Comprehensive metabolic panel (06/25/2024 12:03 PM CDT) [facility] Glucose 106(H) 65 - 99 mg/dL [facility] Comment: Fasting reference interval For someone [...] LAB BLOOD ORDERABLES Final Result [facility] [place] [address] [id number] from Last 3 Months Insurance ANTHEM ACCESS CHOICE ANTHEM ACCESS CHOICE ANTHEM ACCESS CHOICE Care Teams Electrical Machine Builder Relationship Specialty Start Date End Date Mallory Berry PA [address] [place] [address] PCP - General Internal Medicine 05/07/19
--- OUTSIDE RECORDS SUMMARY | 2024-09-10 01:33 | XMS_ITS | Clinical Summary ---
Author Organization [facility] Address [address] [place] [address] Care Team Providers Care Therapist Respiratory Name Role Phone Mallory Berry PA-C Primary Care Provider [phone] [phone] Source Comments [facility],non-owned Affiliates and Associated Physician Practices is amultiple site organization consisting of ambulatory clinics and hospital sitesin [place], [place], [place] and [place]. This disclosure is being madepursuant to the Care Everywhere program and may not contain all information available regarding this patient. Last updated 17.[facility] Allergies No known active allergies Social History [...] Comments Blood Pressure 113/62 03/31/2023 9:28 PM EDUCATION GENERAL MANAGER Pulse 93 03/31/2023 9:26 PM EDUCATION GENERAL MANAGER Temperature 36.4 C (97.5 F) 03/31/2023 9:26 PM EDUCATION GENERAL MANAGER Respiratory Rate 20 03/31/2023 9:26 PM EDUCATION GENERAL MANAGER Oxygen Saturation 99% 03/31/2023 9:26 PM EDUCATION GENERAL MANAGER Inhaled Oxygen Concentration - - Weight 69.9 kg (154 lb) 03/31/2023 10:07 PM EDUCATION GENERAL MANAGER Height 162.6 cm (5' 4) 03/31/2023 9:26 PM EDUCATION GENERAL MANAGER Body Mass Index 26.43 03/31/2023 9:26 PM EDUCATION GENERAL MANAGER Plan of Treatment Health Maintenance Due Date [...] Insurance ANTHEM ANTHEM ANTHEM ANTHEM Care Teams Therapist Respiratory Relationship Specialty Start Date End Date Mallory Berry PANani [address] [facility] [address] [place] [address] PCP - General Physician Ship'S Officer 03/31/23
--- OUTSIDE RECORDS SUMMARY | 2024-09-10 01:33 | XMS_ITS | Clinical Summary ---
Author Organization [facility] Address [address] [place] [phone] Care Team Providers Care Any Commodity Buyer Name Role Phone Mallory Berry Primary Care Provider [phone] Allergies No known active allergies Medications etonogestreL [...] maintain. Assessment & Plan (01/09/2024 11:05 AM PICKLING OPERATOR): BMI Follow-up includes: Discussed diet and exercising counseling. Sore throat 01/09/2024 Assessment & Plan (01/09/2024 1:36 PM PICKLING OPERATOR): Patient states she has had persistent sore [...] 05/23/2023 Assessment & Plan (01/09/2024 1:36 PM PICKLING OPERATOR): Nexplanon in place. Happy with control regimen Assessment & Plan (10/02/2023 8:59 PM CDT): Nexplanon in place for control Assessment & Plan (05/23/2023 12:28 AM CDT): Next month in place. Using for control. History of COVID-19 02/15/2021 Overview (02/15/2021): 02/2021 Elevated liver enzymes 01/26/2021 Assessment & Plan (01/26/2021 11:28 PM PICKLING OPERATOR): Recheck labs Attention deficit disorder (ADD) without hyperac tivity 10/07/2019 Assessment & Plan (06/06/2024 8:11 PM CDT): Adult ADD is well controlled with Vyvanse 50. Refills will be available. Follow up in the office in about 4 months to reassess or sooner for any other problems or concerns Assessment & Plan (01/09/2024 1:36 PM PICKLING OPERATOR): Symptoms are stable with the Vyvanse 50. [...] dose. Assessment & Plan (01/10/2022 12:11 AM PICKLING OPERATOR): Tolerating the Vyvanse 50 well with good [...] semester. Assessment & Plan (01/26/2021 11:23 PM PICKLING OPERATOR): Stable with the Vyvanse 50 mg. Refills sent to pharmacy. Assessment & Plan (02/24/2020 8:32 PM PICKLING OPERATOR): Continue Vyvanse. Still encouraged counseling on campus. [...] 023 Assessment & Plan (01/06/2022 7:59 AM PICKLING OPERATOR): Weight/BMI is in healthy range. Continue healthy [...] 05/23/2023 Assessment & Plan (02/13/2021 8:51 PM PICKLING OPERATOR): Patient to presume positive COVID/FLU until results are available and plan to self isolate for up to 10 days from the onset of sxs. Check COVID/FLU test thru [facility] collection site in [place]. If positive COVID, complete 10 day quarantine [...] water often. If needed, use a hand doggy daycare activities director that contains at least 60% alcohol. Clean and disinfect frequently touched surfaces such as tables, doorknobs, countertops, etc daily. Avoid touching your eyes, nose, and mouth when possible. BMI 24.0-24.9, adult 01/26/2021 022 Assessment & Plan (01/26/2021 10:35 AM PICKLING OPERATOR): Weight/BMI is in healthy range. Continue healthy lifestyle to maintain. Annual physical exam 01/26/2021 022 Assessment & Plan (01/26/2021 11:29 PM PICKLING OPERATOR): Encouraged healthy lifestyle, good nutrition and exercise. Encouraged Calcium and Vitamin D and weight bearing exercise for bone health. Reviewed immunizations Reviewed age appropirate screenings. Other fatigue 02/24/2020 05/23/2023 Assessment & Plan (02/24/2020 8:31 PM PICKLING OPERATOR): Probably multifactorial. Check labs and followup to re-evaluate Need for Tdap vaccination 02/24/2020 Assessment & Plan (02/24/2020 8:31 PM PICKLING OPERATOR): Updated in office today BMI 25.0-25.9,adult 02/21/2020 01/27/20 21 Assessment & Plan (02/21/2020 3:09 PM PICKLING OPERATOR): Weight/BMI is in healthy range. Continue healthy lifestyle to maintain. Annual physical exam 10/07/2019 021 Assessment & Plan (10/07/2019 10:25 AM CDT): Encouraged healthy lifestyle, good nutrition and exercise. Encouraged Calcium and Vitamin D and weight bearing exercise for bone health. Reviewed immunizations Reviewed age appropirate screenings. Screening examination for ST D (sexually transmitted disease) 10/07/2019 01/26/2021 Assessment & Plan (02/24/2020 8:31 PM PICKLING OPERATOR): No known exposure Check labs Assessment & Plan (10/07/2019 10:25 AM CDT): Labs for STD provided BMI 22.0-22.9, adult 08/21/2019 021 Assessment & Plan (08/21/2019 10:26 AM CDT): Weight/BMI is in healthy range. Continue healthy lifestyle to maintain. Encounters Date Type Department Care Team Description 06/27/2024 Results Follow-Up [facility] [address] [address] Mallory Berry PA Hepatitis panel, acute Blood, RPR Blood, HIV 1/2 Antibody plus p24 Antigen Blood, Additional followed-up results: 7 from Last 3 Months Immunizations Immunization Administration [...] on file Legal Sex Female 4:44 AM PICKLING OPERATOR Gender Identity Not on file Sexual Orientation [...] Comments Cervical Cancer Screening 2000 Covid-19 Vaccine (2 - 2024-25 season) 2023 07/16/2022 Influenza Vaccine (#1) 2024 , 11/23/2022, 11/21/2022, Additional history exists Depression Screening 06/06/2025 06/06/2024, 01/09/2024, 09/22/2023, Additional history exists Regular Well Visit/Exam 18-64 06/06/2025 06/06/2024, 09/22/2023, 05/11/2023, Additional history exists DTaP/Tdap/Td Vaccine (8 - Td or Tdap) 02/20/2030 02/21/2020, 07/09/2010, 06/04/2004, Additional history exists Hepatitis B Screening Completed 2000 , 2000, 1999 HPV Vaccines Completed 11/03/2015, 1205/2014, 10/15/2014 Varicella Vaccines Completed 08/01/2022, 0 10/15/2010, [...] trachomatis Amplification Urine (06/25/2024 12:03 PM CDT) Pathologist [facility] [place] C. trachomatis RNA NOT DETECTED NOT DETECTED [facility] N. gonorrhoeae RNA NOT DETECTED NOT DETECTED [facility] Comment [facility] Comment: The analytical performance characteristics of this assay, when used to test SurePath(TM) specimens have been determined by [facility]. The modifications have not been cleared or approved by the FDA. This assay has been validated pursuant to the CLIA regulations and is used for clinical purposes. For additional information, please refer to https://education.Polyvore/faq/LMM017 (This link is being provided for information/ educational purposes only.) Urine (None) 06/25/2024 12:0 3 PM CDT 06/25/2024 12:03 PM CDT Mallory OTOO[facility] MICROBIOLOGY - GENERAL ORDERABLES Final Result [facility] [address] [address] * HIV 1/2 Antibody plus p24 Antigen Blood (06/25/2024 12:03 PM CDT) Pathologist [facility] [place] HIV Ag/Ab, 4th gen NON-REACT UNIQUE NON-REACT UNIQUE [facility] Comment: HIV-1 antigen and HIV-1/HIV-2 antibodies were [...] purpose. For additional information please refer to http://education.Polyvore/faq/OPJ040 (This link is being provided for informational/ educational purposes only.) The performance of this assay has not been clinically validated in patients less than 2 years old. Blood 06/25/2024 12:0 3 PM CDT 06/25/2024 12:03 PM CDT Mallory [facility] MICROBIOLOGY - GENERAL ORDERABLES Final Result Performing Organization Address City/State/[facility] Co de Phone Number [facility] [address] [place] [address] * CBC with auto differential (06/25/2024 12:03 PM CDT) WBC 7.4 3.8 - 10.8 Thousand/u L [...] LAB BLOOD ORDERABLES Final Result [facility] [address] [place] [address] * Hepatitis panel, acute Blood (06/25/2024 12:03 PM CDT) Hep A IgM NON-REACTI VE NON-REACT UNIQUE [facility] Comment: For additional information, please refer to http://Nomi.Polyvore/faq/GER569 (This link is being provided for informational/ educational purposes only.) HepBsAg NON-REACTI VE NON-REACT UNIQUE [facility] Comment: For additional information, please refer to http://Nomi.Polyvore/faq/EMB068 (This link is being provided for informational/ educational purposes only.) Hep B core IgM NON-REACTI VE NON-REACT UNIQUE [facility] Comment: For additional information, please refer to http://Nomi.Polyvore/faq/JPV428 (This link is being provided for informational/ educational purposes only.) Hep C Ab NON-REACTI VE NON-REACT UNIQUE [facility] Comment: HCV antibody was non-reactive. There is no laboratory evidence of HCV infection. In most cases, no further action is required. However, if recent HCV exposure is suspected, a test for HCV RNA (test code 58644) is suggested. For additional information please refer to http://Nomi.Polyvore/faq/LJV87r0 (This link is being provided for informational/ educational purposes only.) Blood 06/25/2024 12:0 3 PM CDT 06/25/2024 12:03 PM CDT Mallory [facility] MICROBIOLOGY - GENERAL ORDERABLES Final Result Performing Organization Address [facility]/ZIP Co de Phone Number [facility] [address] [place] [address] * (ABNORMAL) Vitamin D 25 hydroxy (06/25/2024 [...] D, (D2,D3), LC/MS/MS is recommended: order code 34076 (patients >2yrs). See Note 1 Note 1 For additional information, please refer to http://Nomi.Sharewave/faq/QQZ419 (This link is being provided for informational/ educational purposes only.) Blood 06/25/2024 12:0 3 PM CDT 06/25/2024 12:03 PM CDT Mallory OTOO[facility] LAB BLOOD ORDERABLES Final Result Performing Organization Address City/[facility]/ZIP Co de Phone Number [facility] [address] [facility] [place] [address] * RPR Blood (06/25/2024 12:03 PM CDT) [facility] RPR NON-REACTIV E NON-REACTI VE [facility] Blood 06/25/2024 12:0 3 PM CDT 06/25/2024 12:03 PM CDT Mallory [facility] MICROBIOLOGY - GENERAL ORDERABLES Final Result Performing Organization Address [facility]/ZIP Co de Phone Number [facility] [address] [place] [address] * TSH (06/25/2024 12:03 PM CDT) [facility] TSH 2.24 mIU/L [facility] Comment: Reference Range > or = 20 Years 0.40-4.50 Ranges First trimester 0.26-2.66 Second trimester 0.55-2.73 Third trimester 0.43-2.91 Blood 06/25/2024 12:0 3 PM CDT 06/25/2024 12:03 PM CDT Mallory OTOOLE LAB BLOOD ORDERABLES Final Result [facility] [address] [place] [address] * Hemoglobin A1c (06/25/2024 12:03 PM CDT) [facility] Hgb A1C 5.5 <5.7 % of total Hgb [facility] Comment: For the purpose of screening for the presence of diabetes: <5.7% Consistent with the absence of diabetes 5.7-6.4% Consistent with increased risk for diabetes (prediabetes) > or =6.5% Consistent with diabetes This assay result is consistent with a decreased risk of diabetes. Currently, no consensus exists regarding use of hemoglobin A1c for diagnosis of diabetes in children. According to [place] Diabetes Association (ADA) guidelines, hemoglobin A1c <7.0% represents optimal control in non- diabetic patients. Different metrics may apply to specific patient populations. Standards of Medical Care in Diabetes(ADA). Blood 06/25/2024 12:0 3 PM CDT 06/25/2024 12:03 PM CDT Mallory OTOO[facility] LAB BLOOD ORDERABLES Final Result [facility] [address] [place] [address] * Vitamin B12 (06/25/2024 12:03 PM CDT) Vitamin B12 666 200 - 1,100 pg/mL [facility] Blood 06/25/2024 12:0 3 PM CDT 06/25/2024 12:03 PM CDT Mallory OTOO[facility] LAB BLOOD ORDERABLES Final Result Performing Organization Address City/[facility]/ZIP Co de Phone Number [facility] [address] [place] [address] * (ABNORMAL) Comprehensive metabolic panel (06/25/2024 12:03 PM CDT) Glucose 106(H) 65 - 99 mg/dL [facility] [...] LAB BLOOD ORDERABLES Final Result [facility] [address] [place] [address] from Last 3 Months Insurance [facility] ACCESS CHOICE ANTHEM ACCESS CHOICE ANTHEM ACCESS CHOICE Care Teams Any Commodity Buyer Relationship Specialty Start Date End Date Mallory Berry PA [address] [place] [address] PCP - General Internal Medicine 05/07/19
--- NOTE | 2024-09-10 07:23 | WPDHPUPDATE1 ---
History and Physical Update Update Date/Time: 09/10/24 07:23 History and Physical has been reviewed, including an updated exam of the patient. There are NO changes in the patient's condition. Risks, benefits, and alternatives have been discussed and questions answered. Patient agrees to proceed with procedure.
[2024-09-10] MEDS: ACETAMINOPHEN 500 MG TABLET 1000 MG PO (08:15)
[2024-09-10] MEDS: SCOPOLAMINE 1 MG PATCH 1 PATCH TRANSDERM ×2 (08:30→08:32)
[2024-09-10] MEDS: LACTATED RINGERS 1,000 ML 30 ML IV CONT ×2 (08:30→10:16)
[2024-09-10 08:33] LABS: BEDSIDEPREGUCG Negative (Negative)
--- NOTE | 2024-09-10 09:01 | P.PNAN_ITS ---
Anes - Initial Pre Proc Eval Procedure: Operation Date: 09/10/24 09:30 Proposed Procedures p Tonsillectomy And Adenoidectomy - Keaton Steven MD Date/Time: 09/10/24 09:01 Surgeon: Keaton Steven MD Pre Op Diagnosis: Hypertrophy of Tonsils, Tonsilitits Patient Data Age: 24 Gender: F Height: 1.65 m Weight: 68.48 kg Last Vital Signs Temp 36.7 C 09/10/24 08:15 Pulse 67 09/10/24 08:15 BP 103/68 09/10/24 08:15 Pulse Ox 100 09/10/24 08:15 O2 Del Method Room Air 09/10/24 08:15 Allergies Allergy/AdvReac Type Severity Reaction Status Date / Time No Known Allergies Allergy Verified 09/10/24 08:27 Home Medications ?Medication ?Instructions ?Recorded ?Confirmed ?Type lisdexamfetamine 50 mg capsule 50 mg PO DAILY 12/04/21 08/30/24 History (Vyvanse) etonogestrel 68 mg subdermal 1 implant subdermal ONCE 02/26/23 08/30/24 History implant (Nexplanon) ferrous sulfate 325 mg (65 mg 325 mg PO DAILY 08/30/24 08/30/24 History iron) tablet Laboratory Tests 09/10/24 08:15 POC Urine HCG, Qual Negative (Negative) Patient hx anesthesia problems: none Family hx anesthesia problems: none Results Review: All pre-operative results and documents have been reviewed as part of the pre- operative evaluation. [facility] Past Medical History Medical History History of ADHD Social History Social History Smoking status: Never smoker Second hand tobacco smoke exposure: No Alcohol intake: current Alcohol use details: socially Substance use: never Substance use type: does not use Living arrangements: with family Spiritual care concerns: No Anes - Eval Final PreProcedure Day of Procedure 09/10/24 09:01 Patient weight: normal Heart: regular rate and rhythm Lungs: clear to auscultation Airway: Mallampati scale Neurological: alert and oriented Last oral intake: >/= 8 hours ASA classification: II Emergent: no Anesthetic plan: proceed Anesthesia type and monitoring: general ETT and standard monitoring Results Review: All pre-operative results and documents have been reviewed as part of the pre- operative evaluation. Informed Consent: The patient's anesthetic plan and its attendant risks and benefits were discussed with the patient/family/POA. Questions were solicited and answers provided to the satisfaction of the patient/family/POA.
--- NOTE | 2024-09-10 10:05 | W.PM.PROC2 ---
Procedure Note - Detailed Date of Procedure 09/10/24 Pre-op Diagnosis Hypertrophy of Tonsils, Tonsilitits Post-op Diagnosis Same Procedure Performed Tonsillectomy Surgeon Keaton Steven MD Anesthesia General Indications See above Findings Severely endophytic scarred in tonsils no adenoids minimal bleeding 1 cc. No complications. Description of Procedure Patient identified consent verified the preoperative holding area. Patient brought operating. Time-out performed. General anesthesia induced endotracheal tube secured airway. Patient prepped draped position procedure confirmed 2nd time-out performed. McIvor mouth gag inserted to reveal tonsils described above. They were removed bilaterally in the extracapsular plane using medium medium Cobra later. Any bleeding controlled with cautery on the Coblator setting medium. In-between tonsils McIvor mouth gag lowered reopened allow blood flow to return to the tongue. After the tonsils were out Anesthesia Valsalva and ensured no further bleeding was present. And there was none. Red rubber catheters inserted soft palate suspended anteriorly. Adenoids absent. Red rubber catheters removed McIvor mouth gag removed. I performed all dictated portions of procedure. No complications. Care the patient back to Anesthesiology. Patient taken to PACU. Blood loss 1 cc. Estimated Blood Loss 1 Drains No Packing No Pathology Yes Complications No immediate complications Condition Stable Disposition PACU [facility] Billing Surgery - Charge Forward: Surgery Billing
[2024-09-10] MEDS: fentaNYL CITRATE INJ (*CRX) 100 MCG/2 ML VIAL 25 MCG IV PUSH ×4 (10:20→10:38)
--- NOTE | 2024-09-10 10:53 | S_PTH ---
PATIENT: Promise Brown LOC: [facility] U#:[id number] AGE/SX: 24/F ROOM: RE09/10/[address]: Keaton Steven MD : 2000 BED: DIS: 09/10/2024 SPEC #: [id number] RECD: 09/10/24 10:56 STATUS: KATELIN MCKEON #: [id number] PAUL: 09/10/24 10:[address]: Keaton Steven DEPT: [facility] Surgical RECD BY: Izzy Bermudez ENTERED: 09/10/24 10:56 SP TYPE: Surgical OTHR DR: Mallory Berry, PA Tissues: A - Tonsils Procedures: Gross and Microscopic Level 2
== END 2024-09-10 11:30 | disposition home or self-care (01) ==
PROVIDERS: PCP Physician Assistant; Visit Provider Otolaryngology
PROC: (CPT 42826; principal; 2024-09-10 09:30)
DX: J35.01 Chronic tonsillitis (principal); G89.18 Other acute postprocedural pain; F90.9 Attention-deficit hyperactivity disorder, unspecified type; R06.83 Snoring
CPT/HCPCS: 42826; 88302; A9270; J0330; J1100; J2250; J2405; J2704; J3010; J7040; J7120

== ENCOUNTER 2024-09-28 07:49 | Outpatient (RCR) | payer OTHER, SELFPAY | END 2024-09-28 07:50 | disposition home or self-care (01) | LOC: ANHEH 07:49 | PROVIDERS: PCP Physician Assistant | DX: Z02.89 Encounter for other administrative examinations (principal) | CPT/HCPCS: 80307 ==